=== PATIENT | male | born 1950 | race Caucasian/White ===

== ENCOUNTER → 2019-08-09 07:56 | Outpatient (CLI) | payer MEDICARE, MEDICAID, SELFPAY ==
--- NOTE | 2019-08-09 08:04 | CT_ITS ---
PROCEDURE: CT LUNG SCREENING CLINICAL INDICATION: CURRENT TOBACCO USE Greater than 100 pack year smoking history, asymptomatic for lung cancer COMPARISON: No exams were available for comparison TECHNIQUE: The exam was performed on a GE Light Speed [address] scanner using 2.90 mGy CTDI. A low dose helical CT CHEST was performed on a multi-detector scanner. All CT scans at the facility use one or more dose reduction, viz: automated exposure control, ma/kV adjustment per patient size (including targeted exams where dose is matched to indication, i.e. head), or iterative reconstruction technique. The LDCT was performed in a facility that meets the criteria for the screening program. Data regarding this exam was submitted to ACR which is an approved registry. The order for this exam indicates that it came as a result of a lung cancer screening counseling shard decision-making visit that included all the elements required of such a visit including smoking cessation. The radiologist interpreting this exam meets the [facility] criteria for the LDCT lung cancer screening program. The exam is reported using the Lung-RADS classification scale and reported to the ACR registry. NOTE: This study was performed for the specific purposes of lung cancer screening and is not an alternative to diagnostic chest CT. RADIATION DOSE: CTDI vol(CT dose Index-volume) = 2.90mG DLP (Dose Length Product) = 112.03 mGcm Lung Rads Category: Centrilobular emphysema with with scattered bulla and scattered fibrotic changes. There is a 3 mm noncalcified nodule in the left upper lobe centrally image 40 series 4 There has been a prior median sternotomy with CABG. There is mild ectasias of the ascending aorta at 4 cm OTHER FINDINGS: No other pertinent findings evident. IMPRESSION: Lung rads category 2 benign. Recommend annual LDCT Severe centrilobular emphysema with scattered bulla and scattered areas of scarring Dictated by: Jonathan Laguna MD 08/23/2019 12:33 Electronically signed by Jonathan Laguna MD in [place] 08/23/2019 12:33
--- NOTE | 2019-08-09 08:04 | US_ITS ---
PROCEDURE: US AORTA CLINICAL INDICATION: CURRENT TOBACCO USE, SCREENING AAA COMPARISON: ABDPELW/O CT ABD PELVIS W/O CONTRAST from 06/19/2016 FINDINGS: There is minimal ectasia of the mid abdominal aorta at 2 cm with a mild amount of plaque. No definite aneurysm apparent. Proximal common iliacs are unremarkable. IMPRESSION: No evidence of abdominal aortic aneurysm. Dictated by: Jonathan Laguna MD 08/09/2019 15:53 Electronically signed by Jonathan Laguna MD in [place] 08/09/2019 15:53
== END ==
PROVIDERS: PCP Family Medicine; Visit Provider Family Medicine
DX: Z87.891 Personal history of nicotine dependence (principal); Z12.2 Encounter for screening for malignant neoplasm of respiratory organs; Z13.6 Encounter for screening for cardiovascular disorders
CPT/HCPCS: 76770

== ENCOUNTER 2020-05-21 02:28 | Inpatient (IN) | payer MEDICARE, MEDICAID, SELFPAY ==
[2020-05-21] VITALS (31 sets, daily range): BP systolic 108–157; BP diastolic 71–101; PULSE 59–80; RESP 15–18; TEMP 36.6–37.4; O2SAT 20–99; BMI 18.0; BMI 18.1
--- NOTE | 2020-05-21 | IR_ITS ---
APPROVED REPORT Patient Location: Emergent PROCEDURES Left heart catheterization Left ventriculogram Selective coronary angiogram Left internal mammary angiography Selective engagement of the saphenous vein graft to the right coronary Selective engagement of the saphenous vein graft to the circumflex artery Drug-eluting stent deployment to the saphenous vein graft supplying the right coronary artery Right external iliac artery retrograde angiogram Bare-metal stent deployment to the right external iliac artery INDICATION Acute non-ST ovation myocardial infarction, Coronary artery disease, History of coronary bypass surgery, Right external iliac artery atherosclerotic plaque with stenosis, Informed consent was obtained prior to the procedure. COMPLICATIONS none Estimated Blood Loss: less than 10 mls TECHNIQUE One percent lidocaine used to anesthetize the right groin. The right femoral artery was accessed via the Seldinger technique and a 5 [place] sheath was placed in the right femoral artery. A JL 4, JR4 catheter were used to perform left heart catheterization, left ventriculogram selective coronary angiography as well as selective engagement of the 2 vein grafts and the left internal mammary artery. Retrograde angiography was performed of the right external iliac artery due to difficulty traversing the wire of the iliofemoral system. Therapeutic heparin was administered and the 5 [place] sheath was exchanged for a 6 [place] sheath. A 6 [place] multipurpose catheter was placed into the saphenous vein graft to the right coronary artery and a BMW wire was placed distally. A 3.5 x 38 mm resolute Benjamin stent was placed in the ostial proximal segment and deployed at 18 marcus reducing the stenosis in the saphenous vein graft and trapping the thrombus. An additional hazy stenosis was identified in the mid segment between 2 stents therefore an additional 3.5 x 22 mm resolute Benjamin stent was placed in the midsegment of the saphenous vein graft and deployed at 18 marcus. No reflow occurred which resolved after 2 aliquots of 800 mcg of intrasaphenous vein graft nitroglycerin. At the end of the cardiac procedure a 9 mm x 40 mm self-expanding stent was placed in the right external iliac artery followed by an additional 9 mm x 20 mm self-expanding EV 3 stent deployed distal to the first stent yet still overlapping it. An 8 mm x 40 mm balloon was used to post dilate the stenosis followed by a 9 mm x 20 mm balloon used to further post dilate. After achieving excellent angiographic results the apparatus was removed the groin was reprepped gloves were changed sheath was removed good hemostasis was achieved using Perclose device patient was transferred to the postop holding in stable condition. ANGIOGRAPHIC RESULTS The left main artery Has an ostial 30 to 40% stenosis The left anterior descending artery Has proximal 80% stenosis and then occluded at mid vessel The circumflex artery Is nondominant and gives rise to a solitary small distal obtuse marginal artery. There is a stent in the mid segment which is widely patent. Distal to the stent the stent is larger than the [place] terminal obtuse marginal artery and steps down about 40% into the 1.5 mm terminal obtuse marginal artery. The right coronary artery Is a dominant vessel and proximally occluded The [place] ventriculogram reveals Dilated ventricle with anterior hypokinesis and severe inferior hypokinesis. Estimated ejection fraction is 30 to 35% The left ventricular end-diastolic pressure 15 mmHg Left internal mammary artery is widely patent to the LAD The saphenous vein graft to the right coronary artery has a thrombus in the proximal segment around a 40% stenosis followed by hazy 40%
--- NOTE | 2020-05-21 02:10 | XR_ITS ---
PROCEDURE: XR CHEST 2V CLINICAL HISTORY: chest pain COMPARISON: CT CHW CT CHEST WITH CONTRAST from 07/11/2012 CR CXR CHEST(2 VIEWS-NOT PORTABLE) from 01/06/2015 CR CXR1 CHEST-PORTABLE from 02/27/2015 CR CXR1 CHEST-PORTABLE from 01/08/2017 FINDINGS: Prior CABG. Normal heart size. Coronary artery stents are present. Chronic interstitial changes with COPD. Nodular opacity is present in the left lower lobe consistent with granuloma or area of scarring. No lobar consolidation or collapse. No acute bony abnormalities. IMPRESSION: COPD. No acute finding Dictated by: Jonathan Laguna MD 05/21/2020 04:51 Jonathan Laguna MD in [place] 05/21/2020 04:51
--- NOTE | 2020-05-21 02:10 | ECG_ITS ---
APPROVED REPORT Exam: Resting ECG HR:70 bpm ECG Measurements Heart Rate 70 AXES MI 168 P 74 QRSd 88 QRS -41 QT 420 T -18 QTc 453 Conclusion Normal sinus rhythm Left axis deviation Old inferior changes Late r wave progression Abnormal ECG Electronically signed by : Olu Gonzalez, 05/21/2020 06:55:24
[2020-05-21 02:20] LABS: Basophils # 0.1 K/mm3 (0-0.2); Basophils % 0.7 % (0.1-2.0); Eosinophils % 0.4 % (0.1-12.0); Hematocrit 46.2 % (42.0-52.0); Hemoglobin 14.1 g/dL (14.1-18.0); Lymphocytes # 1.5 K/mm3 (0.7-4.5); Lymphocytes % 18.8 % (10-50); Mean Corpuscular HGB Conc 30.4 g/dL (31.8-35.4); Mean Corpuscular Hemoglobin 26.8 pg (27.0-31.2); Mean Corpuscular Volume 88.1 fl (80-94); Mean Platelet Volume 7.7 fl (7.4-10.4); Monocytes # 0.7 K/mm3 (0.1-1.0); Monocytes % 8.8 % (1.7-9.3); Neutrophils # 5.7 K/mm3 (1.8-7.8); Neutrophils % 71.4 % (37.0-80.0); Platelet Count 387 K/mm3 (142-424); Red Blood Count 5.25 M/mm3 (4.60-6.20)
[2020-05-21 02:32] LABS: Alanine Aminotransferase 42 U/L (12-78); Albumin Level 4.2 g/dl (3.5-5.0); Alkaline Phosphatase 125 U/L (38-126); Anion Gap 13.9 mEq/L (5-15); Aspartate Amino Transferase 41 U/L (17-59); Bilirubin,Direct 0.2 mg/dl (0.0-0.4); Bilirubin,Indirect 0.1 mg/dL (0.0-0.9); Bilirubin,Total 0.3 mg/dl (0.2-1.3); Bilirubin,Unconjugated 0.1 mg/dL (0.0-1.1); Blood Urea Nitrogen 13 mg/dl (9-20); Calcium 9.7 mg/dl (8.4-10.2); Carbon Dioxide 34 mmol/L (22.0-30.0); Chloride 97 mmol/L (98-107); Creatinine Clearance Estimated 48 mL/min (50-200); Estimated Glomerular Filt Rate 112 ml/min (>60); GFR (African American) 136 ML/MIN (>60); Glucose 126 mg/dl (74-100); Potassium 3.9 mmoL/L (3.5-5.1); Sodium 141 mmol/L (136-145); Total Protein,Serum 7.7 g/dl (6.3-8.2)
[2020-05-21 02:44] LABS: Troponin I 0.14 ng/ml (0.00-0.034)
--- NOTE | 2020-05-21 02:46 | HMH.EDCP ---
ED Disposition Clinical Impression: Non-STEMI (non-ST elevated myocardial infarction) Disposition: Admitted As Inpatient Condition on Discharge: Fair - Critical Care Critical Care Time: No Attestation: On , the high probability of a clinically significant, sudden or life threatening deterioration of the following system(s) required my full and direct attention, intervention and personal management. The time I documented below is in addition to time spent performing reported procedures but includes the following listed in this critical care notation. Medical Decision Making - Medical Records Medical records reviewed: Yes: I reviewed the patient's medical records. - Gustavo Inquiry Pt receiving controlled substance: No Vital Signs: 05/21/20 02:02 Temperature 98.4 F Temperature Source Oral Pulse Rate [Right Brachial] 77 Respiratory Rate 15 Blood Pressure [Right Arm] 157/101 H Blood Pressure Mean [Right Arm] 119 Blood Pressure Source [Right Arm] Automatic Cuff Blood Pressure Position [Right Arm] Sitting 02 Sat by Pulse Oximetry 98 Oxygen Delivery Method Room Air - Lab Data Lab results reviewed: Yes: I reviewed the patient's lab results. Lab Results 05/21/20 02:05: WBC 8.0, RBC 5.25, Hgb 14.1, Hct 46.2, MCV 88.1, MCH 26.8 L, MCHC 30.4 L, RDW 16.0, Plt Count 387, MPV 7.7, Neut % (Auto) 71.4, Lymph % (Auto) 18.8, [place] % (Auto) 8.8, Eos % (Auto) 0.4, Baso % (Auto) 0.7, Neut # (Auto) 5.7, Lymph # (Auto) 1.5, [place] # (Auto) 0.7, Eos # (Auto) 0.0, Baso # (Auto) 0.1 05/21/20 02:05: Sodium 141, Potassium 3.9, Chloride 97 L, Carbon Dioxide 34 H, Anion Gap 13.9, BUN 13, Creatinine 0.70, Estimated Creat Clear 48, Estimated GFR 112, Est GFR ( Amer) 136, Glucose 126 H, Calcium 9.7, Total Bilirubin 0.3, Direct Bilirubin 0.2, Conjugated Bilirubin 0.0, Indirect Bilirubin 0.1, Unconjugated Bilirubin 0.1, AST 41, ALT 42, Alkaline Phosphatase 125, Troponin I 0.14 H, Total Protein 7.7, Albumin 4.2 05/21/20 02:05: NT-Pro-B Natriuret Pep 292 H 05/21/20 02:05: SARS-CoV-2 IgG Ab (Rapid) Negative, SARS-CoV-2 IgM Ab (Rapid) Negative Result diagrams: 05/21/20 02:05 05/21/20 02:05 Orders (Tests/Meds): ED MEDICATIONS Generic Name Dose Route Start Last Admin Trade Name Freq PRN Reason Stop Dose Admin Sodium Chloride 8 ml 05/21/20 02:56 Sodium Chloride 0.9% 10ml Vial IV 06/20/20 02:55 NEEDED PRN dilute pepcid Discontinued Medications Generic Name Dose Route Start Last Admin Trade Name Freq PRN Reason Stop Dose Admin Famotidine 20 mg 05/21/20 02:56 05/21/20 02:59 Famotidine 20mg/2ml Vial IV 05/21/20 02:57 20 mg ONCE ONE Administration Metoclopramide HCl 10 mg 05/21/20 02:56 05/21/20 02:59 Metoclopramide Hcl 10mg/2ml Vial IVP 05/21/20 02:57 10 mg ONCE ONE Administration Nitroglycerin 1 gm 05/21/20 02:56 05/21/20 02:59 Nitroglycerin 1 Gm Ointment TD 05/21/20 02:57 1 gm ONCE ONE Administration ORDERS Category Date Time Status XR chest 2V Stat Exams 05/21/20 02:10 Taken Troponin I Q3H Lab 05/21/20 05:15 Ordered Troponin I Q3H Lab 05/21/20 08:15 Ordered - Radiology Data #1 Image(s): Chest Image Reviewed: Yes I reviewed the patient's radiology image Preliminary Findings: Abnormal (nonspecific) - ECG Data Tracing #1 Normal Sinus Rhythm: Yes Ischemic changes: non-specific ST-T wave changes Medical Decision Narrative: has hx of cabg in past but no recent cath with new onset of chest pain with elevated troponin - nonstemi Chest Pain HPI - General Chief Complaint: Chest Pain Stated Complaint: chest pain Time Seen by Provider: 05/21/20 02:30 Mode of Arrival: EMS Source of Information: Patient, EMS, Medical Record Limitations: No Limitations Description of Symptoms (Recalled from ER Triage Doc. by RN): pt presents after having anterior chest pain that radiates down left arm. stated it began about an hour ago and woke him up from sleep. de
[2020-05-21 03:29] LABS: Coronavirus 19 IgG Antibody Negative (Negative); Coronavirus 19 IgM Antibody Negative (Negative)
[2020-05-21 03:30] LABS: NT Pro Brain Natriuretic Pep. 292 pg/mL (0-125)
--- NOTE | 2020-05-21 04:05 | PC.NURSE ---
pt admitted vitals changed to Q4h
--- NOTE | 2020-05-21 04:15 | PC.NURSE ---
pt admitted and boarding in emergency department till bed available on med/surg. pt is alert, oriented x 4, clear speech. lungs diminished bilaterally. no cough noted. states meds helped his chest pain, and requested light off once we left the room. abd soft, nt/nd. bs + x4 quads. last bm yesterday. remains NPO. turns and repositions self independently. no acute distress. vss monitored q4h.
--- NOTE | 2020-05-21 04:34 | PC.NURSE ---
pt given zofran and morphine for continued pain and nausea.
--- NOTE | 2020-05-21 05:15 | PC.NURSE ---
pt is resting, eyes closed. vss. no acute distress.
[2020-05-21 05:58] LABS: Troponin I 0.44 ng/ml (0.00-0.034)
--- NOTE | 2020-05-21 06:15 | PC.NURSE ---
pt resting quietly, vss. no distress observed.
--- NOTE | 2020-05-21 06:47 | CA_ITS ---
APPROVED REPORT EXAM: Comprehensive 2D, Doppler, and color-flow Echocardiogram Under Water Assistant: Milagros Francois RVT Ht: 5 ft 6 in Wt: 112lbs BSA: 1.56 BP: 157/101 mmHg Indications: CP,CABG,HTN,NSTEMI,SMOKER,STENTS 2D Dimensions LVOT 1.45 cm (M/F) 1.5-2.5 M-Mode Dimensions RVDd 2.34 cm (0.9-2.6) LA Diam 4.20 cm (1.9-4.0) LVDd 5.56 cm (3.5-5.7) Ao Diam 3.50 cm (2.0-3.7) LVDs 4.09 cm (3.5-5.7) IVSd 0.37 cm (0.6-1.1) PWd 1.24 cm (0.6-1.1) EF (Teich) 51.20% FS 26.40% EDV (Teich) 151.20 mL ESV (Teich) 73.80 mL LV Diastology E Decel Time 150.00 (160-240 msec) E/A Ratio 1.1 MED E' 13.20 (< 7 cm/sec) E'/MED E' Ratio 5.00 (>14) LAT E' 12.80 (<10 cm/sec) E/LAT E' Ratio 5.16 (>14) Mitral Valve MV E Max Daniel. 66.00 (40-130 cm/s) MV A Velocity 61.00 (40-130 cm/s) E/A Ratio 1.08 MV Decel. Time 150.00 (160-240 ms) MV PHT 44.00 ms Pulmonary Valve PV Peak Velocity 52.00 (50-150 cm/s) Left Ventricle Left atrium is mildly enlarged, left ventricle is normal size, there is no concentric left ventricular hypertrophy, visually estimated ejection fraction 55% with no obvious regional wall motion abnormality, endocardial surfaces are somewhat poorly visualized. Diastolic parameters are within normal range. Right Ventricle Right atrium and right ventricle are normal size and contractility. Aortic Valve Aortic valve is minimally thickened and fibrosed, there is no aortic stenosis or aortic insufficiency. Mitral Valve Mitral valve is grossly normal, there is mild mitral regurgitation. Tricuspid Valve Tricuspid valve is grossly normal, there is mild tricuspid regurgitation, tricuspid regurgitation jet velocity is inadequate for calculation of the right ventricular systolic pressure. Pulmonic Valve Pulmonic valve is poorly visualized. Great Vessels Aortic root is normal size. Pericardium No significant pericardial effusion noted. Conclusion 1. Mildly enlarged left atrium, normal left ventricular size, visually estimated ejection fraction 55% with no regional wall motion abnormality, diastolic parameters are within normal range. 2. Thickened and calcified aortic valve without aortic stenosis or aortic insufficiency. 3. Mild mitral and tricuspid regurgitation. 4. No significant pericardial effusion noted. Electronically signed by : Juan Uribe, 05/22/2020 05:43:48
--- NOTE | 2020-05-21 06:49 | PC.NURSE ---
contacted vascular and lab for morning orders.
[2020-05-21 07:30] LABS: Magnesium 1.8 mg/dl (1.6-2.3)
--- NOTE | 2020-05-21 07:33 | PC.NURSE ---
Report from Torrie,RN pt resting no needs at this time
--- NOTE | 2020-05-21 08:10 | PC.NURSE ---
Pt sleeping, no complaints at this time
--- NOTE | 2020-05-21 09:17 | PC.NURSE ---
Wil Caceres at bedside. Comes out and advised pt is having some more pain and requests for 1 SL nitro. Pt given nitro and 180 mg of Brilinta per Wil Caceres. Advises [place] conservation laborer will be down to get patient.
--- NOTE | 2020-05-21 09:28 | ECG_ITS ---
APPROVED REPORT Exam: Resting ECG HR:63 bpm ECG Measurements Heart Rate 63 AXES NJ 208 P 76 QRSd 76 QRS -38 QT 458 T 5 QTc 468 Conclusion Normal sinus rhythm Left axis deviation Low voltage QRS Over inferior changes with poor R-wave progression, also old Abnormal ECG Electronically signed by : Olu Gonzalez, 05/23/2020 17:11:33
--- NOTE | 2020-05-21 09:34 | PC.NURSE ---
PT GOING TO OPHTHALMIC TECHNICIAN , THE FIRST NITRO PASTE WAS REMOVED PRIOR TO PUTTING THE 2ND PASTE ON
--- NOTE | 2020-05-21 09:38 | PC.NURSE ---
pt to pathology laboratory director with BETTY Graves
--- NOTE | 2020-05-21 09:38 | HMH.CNCARD ---
History of Present Illness Consult date: 05/21/20 Consult reason: chest pain Chief complaint: NSTEMI Additional Medical History:: 1. Coronary artery disease A. 6 vessel CABG with aortic valve replacement (bioprosthetic), approximately 2007 2. Tobacco use 3. Hypertension 4. Hyperlipidemia History of present illness: 69-year-old white male with history of coronary artery disease, coronary bypass grafting and aortic valve replacement presented to the emergency department for anterior chest pain radiating to the left arm that woke him from sleep. He rates it as a 10 out of 10 on pain scale that improved after nitroglycerin in the ER. Troponins drawn overnight have returned positive with peak of 0.44. EKG showed sinus rhythm with no acute ST segment changes but appears to have old anterior and inferior infarct pattern. Patient had been stable on Nitropaste overnight. Prior to my arrival he relates he began having chest pressure again rating it as an 8 out of 10. After 2 sublingual nitroglycerin symptoms were improving down to a 5 out of 10. Blood pressure was around 110-115 mm Hg systolic. Discussed patient's status with Dr. Dixon and recommend taking patient to the cardiac [facility]ola Repairer. Brilinta 180 mg was given p.o. Patient takes an aspirin daily. [facility] History Medical History: Reports:: Coronary Artery Disease, Gall Bladder Disease, Lung Disease *Have you ever received a pneumonia vaccine?: No *Have you received a flu vaccine this season?: No Other Surgeries: Yes: Appendectomy, Cholecystectomy - *Social History Smoking Status: Current every day smoker # Packs/Day (cigarettes): 3 Alcohol Intake: never *Occupational Status:: retired, disabled *Travel in the last 8 weeks: None Family Hx:: Non-contributory Meds Home Medications Medication Instructions Recorded Confirmed Type aspirin 81 mg tablet,delayed 81 mg PO DAILY 03/15/20 05/21/20 History release carvedilol 6.25 mg tablet 6.25 mg PO Q12H 03/15/20 05/21/20 History cyclobenzaprine 5 mg tablet 5 mg PO TID PRN 03/15/20 05/21/20 History gabapentin 100 mg capsule 100 mg PO TID 03/15/20 05/21/20 History lactobacillus combination no.8 3 3,000 mmu cells PO DAILY 03/15/20 05/21/20 History billion cell capsule lisinopril 20 mg tablet 20 mg PO BID 03/15/20 05/21/20 History omega-3 fatty acids 500 mg capsule 500 mg PO DAILY 03/15/20 05/21/20 History mupirocin 2 % topical ointment 1 applic TOPICAL BID #22 g 03/29/20 05/21/20 Rx Allergies Allergy/AdvReac Type Severity Reaction Status Date / Time sulfamethoxazole Allergy Unknown Verified 05/08/20 14:41 [From BACTRIM] trimethoprim [From BACTRIM] Allergy Unknown Verified 05/08/20 14:41 Penicillins Allergy Verified 05/08/20 14:41 Exam Vital signs and Labs for Last 24 Hours: Temp Pulse Resp BP Pulse Ox 98.4 F 62 18 114/75 97 05/21/20 02:02 05/21/20 09:29 05/21/20 09:29 05/21/20 09:29 05/21/20 09:29 Laboratory Results - last 24 hr 05/21/20 02:05: WBC 8.0, RBC 5.25, Hgb 14.1, Hct 46.2, MCV 88.1, MCH 26.8 L, MCHC 30.4 L, RDW 16.0, Plt Count 387, MPV 7.7, Neut % (Auto) 71.4, Lymph % (Auto) 18.8, [place] % (Auto) 8.8, Eos % (Auto) 0.4, Baso % (Auto) 0.7, Neut # (Auto) 5.7, Lymph # (Auto) 1.5, [place] # (Auto) 0.7, Eos # (Auto) 0.0, Baso # (Auto) 0.1 05/21/20 02:05: Sodium 141, Potassium 3.9, Chloride 97 L, Carbon Dioxide 34 H, Anion Gap 13.9, BUN 13, Creatinine 0.70, Estimated Creat Clear 48, Estimated GFR 112, Est GFR ( Amer) 136, Glucose 126 H, Calcium 9.7, Total Bilirubin 0.3, Direct Bilirubin 0.2, Conjugated Bilirubin 0.0, Indirect Bilirubin 0.1, Unconjugated Bilirubin 0.1, AST 41, ALT 42, Alkaline Phosphatase 125, Troponin I 0.14 H, Total Protein 7.7, Albumin 4.2 05/21/20 02:05: NT-Pro-B Natriuret Pep 292 H 05/21/20 02:05: SARS-CoV-2 IgG Ab (Rapid) Negative, SARS-CoV-2 IgM Ab (Rapid) Negative 05/21/20 05:20: Troponin I 0.44 H 05/21/20 07:02: Magnesium 1.8 I & O for Last 24 hours: Intake &
--- NOTE | 2020-05-21 13:17 | PC.NURSE ---
Patient c/o chest pain following heart cath. [facility]p for chestpain. Titrate per protocol. Patient room moved to accomodate a stepdown room.
[2020-05-21 13:26] LABS: CATHL Activated Clotting Time 379 SEC (74-125)
[2020-05-21 13:26] LABS: CATHL Activated Clotting Time 248 SEC (74-125)
--- NOTE | 2020-05-21 13:47 | HMH.PHAVTE ---
[facility] Pharmacy VTE Monitoring - Patient Demographics Admission date: 05/21/20 Report Date: 05/21/20 Time: 13:47 Allergies/Adverse Reactions: Patient Allergies sulfamethoxazole [From BACTRIM] Allergy (Unknown, Verified 05/08/20 14:41) trimethoprim [From BACTRIM] Allergy (Unknown, Verified 05/08/20 14:41) Penicillins Allergy (Verified 05/08/20 14:41) Height: 1.68 m Weight: 50.802 kg Patient Problems: Current Active Problems Non-STEMI (non-ST elevated myocardial infarction) (Acute) CAD (coronary artery disease) (Acute) History of coronary artery bypass graft x 6 (Acute) Tobacco use disorder, continuous (Acute) Hypertension (Acute) Hyperlipidemia (Acute) - VTE Risk Labs: VTE Related Lab Results Hgb 14.1 g/dL (14.1-18.0) 05/21/20 02:05 Hct 46.2 % (42.0-52.0) 05/21/20 02:05 Plt Count 387 K/mm3 (142-424) 05/21/20 02:05 BUN 13 mg/dl (9-20) 05/21/20 02:05 Creatinine 0.70 mg/dl (0.66-1.25) 05/21/20 02:05 Estimated Creat Clear 48 mL/min (50-200) 05/21/20 02:05 Was VTE Risk Assessment Performed: Yes VTE Score: 5 VTE Risk Level: Low Risk Clinical Trial Participant: No - Prophylaxis VTE Prophylaxis Ordered?: Yes Types of VTE Prophylaxis: TEDS Knee High
--- NOTE | 2020-05-21 13:50 | HMH.PHAINT ---
home medication list completed using list from clinic pharmacy
--- NOTE | 2020-05-21 17:27 | HMH.HP ---
*Admission Date: 05/21/20 *Chief complaint: Chest pain *History of present illness: HPI is taken from cardiology consult note due to patient's drowsiness status post cardiac catheterization and is as follows: 69-year-old white male with history of coronary artery disease, coronary bypass grafting and aortic valve replacement presented to the emergency department for anterior chest pain radiating to the left arm that woke him from sleep. He rates it as a 10 out of 10 on pain scale that improved after nitroglycerin in the ER. Troponins drawn overnight have returned positive with peak of 0.44. EKG showed sinus rhythm with no acute ST segment changes but appears to have old anterior and inferior infarct pattern. Patient had been stable on Nitropaste overnight. Prior to my arrival he relates he began having chest pressure again rating it as an 8 out of 10. After 2 sublingual nitroglycerin symptoms were improving down to a 5 out of 10. Blood pressure was around 110-115 mm Hg systolic. Discussed patient's status with Dr. Dixon and recommend taking patient to the cardiac [facility]ayer. In the [facility] patient had stenting of saphenous vein graft to his right coronary artery and right external iliac stenting. Postprocedure he is complained of some chest tightness which is currently rather mild but was started on a nitroglycerin drip. He reports headache and nausea [facility] History I have reviewed the patient's past medical history: Yes Medical History: Reports:: Coronary Artery Disease, Gall Bladder Disease, Lung Disease *Have you ever received a pneumonia vaccine?: Yes *Have you received a flu vaccine this season?: Yes Other Surgeries: Yes: Appendectomy, Cholecystectomy - *Social History Last grade of school completed: 9th or 10th Smoking Status: Current every day smoker Tobacco Type: cigarettes # Packs/Day (cigarettes): 1 Alcohol Intake: never *Occupational Status:: disabled Housing: house *Travel in the last 8 weeks: None Family Hx:: Non-contributory Review of Systems - Constitutional Denies anorexia, Denies body ache(s), Denies chills - *Cardiovascular Reports chest pain, Reports chest pain at rest - *Respiratory Reports shortness of breath, Denies change in phlegm color, Denies chest congestion, Denies cough - *Gastrointestinal Denies abdominal pain, Denies belching - *Genitourinary Denies painful urination, Denies side pain - *Musculoskeletal Denies abnormal walking, Denies joint pain, Denies decreased muscle mass - *Neurologic Denies localized weakness, Denies tingling/numbness/burning sensations Meds Home Medications Medication Instructions Recorded Confirmed Type aspirin 81 mg tablet,delayed 81 mg PO DAILY 03/15/20 05/21/20 History release carvedilol 6.25 mg tablet 6.25 mg PO BID 03/15/20 05/21/20 History cyclobenzaprine 5 mg tablet 5 mg PO TID PRN 03/15/20 05/21/20 History gabapentin 100 mg capsule 100 mg PO TID 03/15/20 05/21/20 History lactobacillus combination no.8 3 1 cap PO DAILY 03/15/20 05/21/20 History billion cell capsule lisinopril 20 mg tablet 20 mg PO DAILY 03/15/20 05/21/20 History omega-3 fatty acids 500 mg capsule 500 mg PO DAILY 03/15/20 05/21/20 History mupirocin 2 % topical ointment 1 applic TOPICAL BID #22 g 03/29/20 05/21/20 Rx Allergies Allergy/AdvReac Type Severity Reaction Status Date / Time sulfamethoxazole Allergy Unknown Verified 05/08/20 14:41 [From BACTRIM] trimethoprim [From BACTRIM] Allergy Unknown Verified 05/08/20 14:41 Penicillins Allergy Verified 05/08/20 14:41 Exam Vital signs and Labs for Last 24 Hours: Temp Pulse Resp BP Pulse Ox 98 F 70 16 110/74 94 L 05/21/20 09:41 05/21/20 16:00 05/21/20 11:30 05/21/20 11:30 05/21/20 11:30 Laboratory Results - last 24 hr 05/21/20 02:05: WBC 8.0, RBC 5.25, Hgb 14.1, Hct 46.2, MCV 88.1, MCH 26.8 L, MCHC 30.4 L, RDW 16.0, Plt Count 387, MPV 7.7, Neut % (Auto) 71.4, Lymph % (Auto) 18.8, [place] % (A
[2020-05-22] VITALS (9 sets, daily range): BP systolic 96–122; BP diastolic 62–72; PULSE 60–87; RESP 16–18; TEMP 36.6–36.9; O2SAT 92–98; BMI 18.6
--- NOTE | 2020-05-22 03:55 | PC.NURSE ---
2330 pt reassessed rated pain as a 1 on a scale of 1-10, nitro drip d/c at this time. rt femoral cath site soft to touch zero bleeding or hematoma noted.
--- NOTE | 2020-05-22 03:57 | PC.NURSE ---
2000rt femoral cath site assessed soft to touch, no bleeding or hematoma noted.
[2020-05-22 06:21] LABS: Basophils % 0.2 % (0.1-2.0); Eosinophils % 0.2 % (0.1-12.0); Hemoglobin 12.3 g/dL (14.1-18.0); Lymphocytes # 1.4 K/mm3 (0.7-4.5); Lymphocytes % 16.3 % (10-50); Mean Corpuscular HGB Conc 32.4 g/dL (31.8-35.4); Mean Corpuscular Hemoglobin 27.7 pg (27.0-31.2); Mean Corpuscular Volume 85.6 fl (80-94); Mean Platelet Volume 7.6 fl (7.4-10.4); Monocytes % 11.1 % (1.7-9.3); Neutrophils # 6.2 K/mm3 (1.8-7.8); Neutrophils % 72.2 % (37.0-80.0); Platelet Count 371 K/mm3 (142-424); Red Blood Count 4.44 M/mm3 (4.60-6.20); Red Cell Distribution Width 16.2 % (11.5-17.5); White Blood Count 8.6 K/mm3 (4.8-10.8)
--- NOTE | 2020-05-22 06:23 | PC.NURSE ---
shift summary pt reported chest pain had reduced to 1 on a scale of 1-10, nitro dripped was dc. pt on residential monitor remained in sr. breath sounds where clear and equal bilaterally sats remained 95% or above. pt is a/o X4, pt voiding with bedside urinal.
[2020-05-22 06:27] LABS: Anion Gap 9.9 mEq/L (5-15); Blood Urea Nitrogen 9 mg/dl (9-20); Carbon Dioxide 27 mmol/L (22.0-30.0); Chloride 102 mmol/L (98-107); Chol/HDL Ratio 6.3 (1-3.5); Cholesterol 113 mg/dl (140-200); Creatinine Clearance Estimated 53 mL/min (50-200); Estimated Glomerular Filt Rate 134 ml/min (>60); GFR (African American) 163 ML/MIN (>60); Glucose 125 mg/dl (74-100); HDL Cholesterol 18 mg/dl (40-60); Magnesium 1.9 mg/dl (1.6-2.3); Potassium 3.9 mmoL/L (3.5-5.1); Sodium 135 mmol/L (136-145); Triglycerides 86 mg/dl (30-150); VLDL Cholesterol 17 mg/dL (0-40)
[2020-05-22 06:30] LABS: Calcium 8.7 mg/dl (8.4-10.2)
[2020-05-22 06:38] LABS: Direct LDL Cholesterol 75.15 mg/dL (100-129)
--- NOTE | 2020-05-22 06:55 | HMH.DCSUM ---
General - General Admission date:: 05/21/20 Discharge date: 05/22/20 HPI HPI: HPI is taken from cardiology consult note due to patient's drowsiness status post cardiac catheterization and is as follows: 69-year-old white male with history of coronary artery disease, coronary bypass grafting and aortic valve replacement presented to the emergency department for anterior chest pain radiating to the left arm that woke him from sleep. He rates it as a 10 out of 10 on pain scale that improved after nitroglycerin in the ER. Troponins drawn overnight have returned positive with peak of 0.44. EKG showed sinus rhythm with no acute ST segment changes but appears to have old anterior and inferior infarct pattern. Patient had been stable on Nitropaste overnight. Prior to my arrival he relates he began having chest pressure again rating it as an 8 out of 10. After 2 sublingual nitroglycerin symptoms were improving down to a 5 out of 10. Blood pressure was around 110-115 mm Hg systolic. Discussed patient's status with Dr. Dixon and recommend taking patient to the cardiac Tool Planner. In the Tool Planner patient had stenting of saphenous vein graft to his right coronary artery and right external iliac stenting. Postprocedure he is complained of some chest tightness which is currently rather mild but was started on a nitroglycerin drip. He reports headache and nausea Hospital Course Hospital Course: Patient was taken to the Tool Planner from the emergency department for non-STEMI. Findings were as follows: ANGIOGRAPHIC RESULTS The left main artery Has an ostial 30 to 40% stenosis The left anterior descending artery Has proximal 80% stenosis and then occluded at mid vessel The circumflex artery Is nondominant and gives rise to a solitary small distal obtuse marginal artery. There is a stent in the mid segment which is widely patent. Distal to the stent the stent is larger than the [place] terminal obtuse marginal artery and steps down about 40% into the 1.5 mm terminal obtuse marginal artery. The right coronary artery Is a dominant vessel and proximally occluded The [place] ventriculogram reveals Dilated ventricle with anterior hypokinesis and severe inferior hypokinesis. Estimated ejection fraction is 30 to 35% The left ventricular end-diastolic pressure 15 mmHg Left internal mammary artery is widely patent to the LAD The saphenous vein graft to the right coronary artery has a thrombus in the proximal segment around a 40% stenosis followed by hazy 40% stenoses in the mid segment in between 2 stents. Saphenous vein graft to the circumflex artery is ostially occluded The right external iliac artery has an eccentric 70 to 80% stenosis IMPRESSION Acute partial thrombosis of the saphenous vein graft supplying the dominant right coronary artery Successful stenting of the ostial proximal and mid saphenous vein graft supplying the dominant right coronary in a noncontiguous manner Patent ROSSI to the LAD Occluded saphenous vein graft to circumflex artery Regional wall motion abnormality with reduced ejection fraction Severe right external iliac artery stenosis Successful stenting the right external iliac artery severe disease reduced to 10% with 2 self-expanding bare-metal stents PLAN 1. Brilinta and aspirin 2. Echocardiogram 3. LILIYA inhibitors plus beta-blockers once hemodynamically stable 4. LDL less than 55 5. Patient should be evaluated for LifeVest prior to discharge home if the ejection fraction is 35% or less 6. Avoidance of tobacco products 7. Risk factor modification 8. Cardiac rehabilitation Electronically signed by : Petey Dixon, 05/21/2020 10:53:42 After patient's heart catheterization he did continue to complain of some mild chest pain and was placed on a nitroglycerin drip which stayed on until approximately 11 PM on the evening of May 21. At that point patient's pain had significantly reduced and was rated as a 1 o
--- NOTE | 2020-05-22 06:56 | PC.NURSE ---
dr. pantoja at bedside, chart reviewed patient assessed. new order received to discontinue ivf.
--- NOTE | 2020-05-22 07:14 | PC.NURSE ---
Propofol decreased to 2mcg at this time
--- NOTE | 2020-05-22 07:37 | P.PN_ITS ---
Subjective Date: 05/22/20 Time: 07:37 Principal diagnosis: Non-ST elevation FL Interval history: 69-year-old white male in bed in no acute distress. Patient was admitted yesterday for non-ST elevation FL with subsequent stenting of his saphenous vein graft to his right coronary artery. He did have some recurrent chest pain last evening felt secondary to vasospasm which resolved after transient IV nitroglycerin use. Patient is symptom free this morning and wants to go home. Concern for severe cardiomyopathy at the time of the cardiac cath was noted with echocardiogram yesterday showing ejection fraction of 50%. Patient was also noted to have severe right external iliac artery stenosis that was treated subsequently with 2 bare-metal stents. Exam Vital signs and Labs for Last 24 Hours: Temp Pulse Resp BP Pulse Ox 98.4 F 61 16 106/67 L 95 05/22/20 04:24 05/22/20 06:00 05/22/20 06:00 05/22/20 06:00 05/22/20 06:00 Laboratory Results - last 24 hr 05/21/20 11:29: Activated Clotting Time 248 H* 05/21/20 11:38: Activated Clotting Time 379 H* D 05/22/20 05:25: WBC 8.6, RBC 4.44 L, Hgb 12.3 L, Hct 38.0 L, MCV 85.6, MCH 27.7, MCHC 32.4, RDW 16.2, Plt Count 371, MPV 7.6, Neut % (Auto) 72.2, Lymph % (Auto) 16.3, [place] % (Auto) 11.1 H, Eos % (Auto) 0.2, Baso % (Auto) 0.2, Neut # (Auto) 6.2, Lymph # (Auto) 1.4, [place] # (Auto) 1.0, Eos # (Auto) 0.0, Baso # (Auto) 0.0 05/22/20 05:25: Sodium 135 L, Potassium 3.9, Chloride 102, Carbon Dioxide 27 D, Anion Gap 9.9, BUN 9 D, Creatinine 0.60 L, Estimated Creat Clear 53, Estimated GFR 134, Est GFR ( Amer) 163, Glucose 125 H, Calcium 8.7 D, Magnesium 1.9, Triglycerides 86, Cholesterol 113 L, LDL Cholesterol Direct 75.15 L, VLDL Cholesterol 17, HDL Cholesterol 18 L, Cholesterol/HDL Ratio 6.3 H I & O for Last 24 hours: Intake & Output 05/19/20 05/20/20 05/21/20 05/22/20 11:59 11:59 11:59 11:59 Intake Total 963 / 963 Output Total 2150 / 2150 Balance -1187 / -1187 Weight 112 lb 115 lb 9 oz - Constitutional no acute distress - *Routine HEENT Exam Head: Present: normocephalic Eye: Present: EOMI, PERRL ENT: Present: mucous membranes moist - *Routine Neck Exam Present: supple. Absent: lymphadenopathy - *Routine Respiratory Exam Present: CTA bilaterally - *Routine Cardiovascular Exam Present: RRR - *Routine Abdominal Exam Present: soft, normoactive bowel sounds. Absent: tenderness - *Routine Extremities Exam Absent: cyanosis, clubbing, edema - *Routine Skin Exam Present: warm. Absent: rash - *Routine Neurological Exam Present: alert, oriented X3 Progress Note: A&P (1) Non-STEMI (non-ST elevated myocardial infarction) Status: Acute (2) CAD (coronary artery disease) Status: Acute (3) History of coronary artery bypass graft x 6 Status: Acute (4) Tobacco use disorder, continuous Status: Acute (5) Hypertension Status: Acute (6) Hyperlipidemia Status: Acute (7) PAD (peripheral artery disease) Status: Acute Assessment and Plan for All Diagnoses:: Okay for discharge from cardiology standpoint Home medication recommendations include aspirin 81 mg daily, Brilinta 90 mg twice daily, atorvastatin 40 mg daily, carvedilol 6.25 mg twice daily and lisinopril 20 mg daily. Follow-up in our office in 1 week or sooner if needed
--- NOTE | 2020-05-22 09:45 | HMH.PHACLD ---
Zac Cunningham has received discharge medication counseling on the following medications: PATIENT IS CURRENTLY TAKING ASPIRIN DR 81 MG DAILY, CARVEDILOL 6.25 MG BID, AND LISINOPRIL 20 MG DAILY. MD ADDING BRILINTA 90 MB BID AND ATORVASTATIN 40 MG HS POST STENT.
--- NOTE | 2020-05-22 10:21 | SW/DCPLANNER ---
SET UP TRANSPORTATION FOR THIS PATIENT TO HAVE A RIDE HOME FROM THE HOSPITAL.. INFORMED NURSE THEY WILL BE CALLING WHEN SOMEONE IS IN THE AREA....
== END 2020-05-22 12:10 | disposition home or self-care (01) | DRG 247 ==
LOC: ER 04:03 → 2ND 04:07
PROVIDERS: Internal Medicine; Admitting Provider Family Medicine; Emergency Provider Emergency Medicine; PCP Family Medicine; Visit Provider Family Medicine
PROC: 027035Z Dilation of Coronary Artery, One Artery with Two Drug-eluting Intraluminal Devices, Percutaneous Approach (ICD-10-PCS; principal; 2020-05-21 14:45)
PROC: 027035Z Dilation of Coronary Artery, One Artery with Two Drug-eluting Intraluminal Devices, Percutaneous Approach (ICD-10-PCS; 2020-05-21 14:45)
DX: I21.4 Non-ST elevation (NSTEMI) myocardial infarction (principal); T82.867A Thrombosis due to cardiac prosthetic devices, implants and grafts, initial encounter; F17.210 Nicotine dependence, cigarettes, uncomplicated; I25.10 Atherosclerotic heart disease of native coronary artery without angina pectoris; I70.8 Atherosclerosis of other arteries; I10 Essential (primary) hypertension; E78.5 Hyperlipidemia, unspecified; Z79.82 Long term (current) use of aspirin; Z79.899 Other long term (current) drug therapy; Z95.1 Presence of aortocoronary bypass graft; Z82.49 Family history of ischemic heart disease and other diseases of the circulatory system; Z88.0 Allergy status to penicillin; Z88.2 Allergy status to sulfonamides; Z88.8 Allergy status to other drugs, medicaments and biological substances; Z90.49 Acquired absence of other specified parts of digestive tract; Z95.2 Presence of prosthetic heart valve
CPT/HCPCS: 36415; 37221; 71046; 80048; 80061; 80076; 83735; 83880; 84484; 85025; 85347; 86328; 92937; 93005; 93306; 93458; 96374; 96375; 99152; 99153; 99284; C1725; C1760; C1769; C1876; C1894; C9604; J1644; J2405; Q9967

== ENCOUNTER 2020-06-22 21:00 | Observation (INO) | payer MEDICARE, MEDICAID, SELFPAY ==
[2020-06-22 21:03] VITALS: BP 133/87; PULSE 71; RESP 20; TEMP 36.7; O2SAT 96; BMI 16.6
[2020-06-22 21:16] VITALS: PULSE 70
[2020-06-22 22:00] VITALS: RESP 16
[2020-06-23] VITALS: BP 98/64; PULSE 85; PULSE 90; RESP 20; TEMP 36.7; O2SAT 96
[2020-06-23 04:00] VITALS: BP 103/72; PULSE 66; PULSE 80; RESP 20; TEMP 36.9; O2SAT 99
[2020-06-23 05:00] VITALS: BMI 16.6
[2020-06-23 07:33] LABS: Chloride 108 mmol/L (98-107); Sodium 137 mmol/L (136-145)
[2020-06-23 07:34] LABS: Potassium 3.8 mmoL/L (3.5-5.1)
[2020-06-23 07:37] LABS: Anion Gap 10.8 mEq/L (5-15); Blood Urea Nitrogen 9 mg/dl (9-20); Calcium 9.1 mg/dl (8.4-10.2); Carbon Dioxide 22 mmol/L (22.0-30.0); Creatinine Clearance Estimated 48 mL/min (50-200); Estimated Glomerular Filt Rate 166 ml/min (>60); GFR (African American) 201 ML/MIN (>60); Glucose 173 mg/dl (74-100)
[2020-06-23 07:38] LABS: Hematocrit 37.3 % (42.0-52.0); Hemoglobin 11.8 g/dL (14.1-18.0); Lymphocytes # 0.7 K/mm3 (0.7-4.5); Lymphocytes % 19.8 % (10-50); Mean Corpuscular HGB Conc 31.6 g/dL (31.8-35.4); Mean Corpuscular Volume 85.5 fl (80-94); Monocytes # 0.1 K/mm3 (0.1-1.0); Monocytes % 3.4 % (1.7-9.3); Neutrophils # 2.7 K/mm3 (1.8-7.8); Neutrophils % 76.8 % (37.0-80.0); Platelet Count 399 K/mm3 (142-424); Red Blood Count 4.36 M/mm3 (4.60-6.20); Red Cell Distribution Width 17.3 % (11.5-17.5); White Blood Count 3.5 K/mm3 (4.8-10.8)
[2020-06-23 07:48] LABS: Troponin I 0.09 ng/ml (0.00-0.034)
--- NOTE | 2020-06-23 07:49 | PC.NURSE ---
no acute changes since prior assessment, pt is AxOx4, has not had any complaints of chest pain, N/V, or SOA, telemetry shows NSR, HR 66-80, systolic pressure 98-133, remains on room air
[2020-06-23 08:00] VITALS: BP 118/80; PULSE 60; PULSE 67; RESP 16; TEMP 36.9; O2SAT 95; O2SAT 99
--- NOTE | 2020-06-23 08:09 | HMH.HP ---
*Admission Date: 06/22/20 *Chief complaint: Hematemesis, melena *History of present illness: 69-year-old male with history of coronary artery disease with recent stenting May 21, 2020 presented to [facility] emergency department with complaints of 3 days of black tarry stools with onset of epigastric pain and hematemesis. Patient was undergoing evaluation at [facility]'s emergency department when a EKG showed new T wave inversions in V2 through V6 along with an elevated troponin. Dr. Dixon was contacted by the [facility] and patient was transferred to [facility]. Patient denies having chest pain. He denies neck or jaw pain. Patient does report may be some increased shortness of breath over the last 24 to 48 hours. Denies fevers, chills, cough. Regarding patient's GI symptoms he has not had any further hematemesis or passed any stools since admission. He was able to eat some crackers yesterday evening without further vomiting. Patient has been taking his aspirin and Brilinta as prescribed. Patient also takes fish oil. He reports having an ulcer 15 years ago. His last colonoscopy was in 2007 and he reports having 4 polyps removed. [facility] History I have reviewed the patient's past medical history: Yes Medical History: Reports:: Cancer, Coronary Artery Disease, Gall Bladder Disease, Hyperlipidemia, Hypertension, Lung Disease, Myocardial Infarction Denies:: Diabetes Mellitus Type 1, Diabetes Mellitus Type 2, MRSA *Have you ever received a pneumonia vaccine?: Yes *Have you received a flu vaccine this season?: Yes Other Surgeries: Yes: Appendectomy, CABG (CABG times 10/2007), Cholecystectomy, Hernia Repair, Other Valve Replacement (Bioprosthetic aortic valve 2007) Amputation: No Fractures: No - *Social History Smoking Status: Current every day smoker Tobacco Type: cigarettes # Packs/Day (cigarettes): 1 Alcohol Intake: never *Occupational Status:: retired Housing: house *Travel in the last 8 weeks: None Family Hx:: Cancer, Coronary Artery Disease, Diabetes, Hyperlipidemia, Hypertension Review of Systems - Constitutional Denies body ache(s), Denies chills, Denies lack of energy, Denies malaise - Eyes Denies change in vision - ENT Denies bleeding gums - *Cardiovascular Reports shortness of breath, Denies chest pain, Denies chest pain at rest, Denies chest pain with activity, Denies leg pain with activity, Denies excessive sweating, Denies generalized swelling, Denies irregular heart rhythm - *Respiratory Reports shortness of breath, Denies change in phlegm color, Denies chest congestion, Denies cough, Denies excessive phlegm production, Denies coughing up blood - *Gastrointestinal Reports abdominal pain, Reports change in bowel habits, Reports change in stools, Reports coffee ground vomit, Reports black, tarry stools, Denies belching, Denies bloating, Denies pain with swallowing - *Genitourinary Denies difficulty urinating, Denies difficulty with ejaculations, Denies painful urination - *Musculoskeletal Denies abnormal walking, Denies joint pain, Denies decreased muscle mass - Integumentary/Breasts Denies hair loss, Denies bleeding lesions - *Neurologic Denies abnormal walking, Denies abnormal speech Meds Home Medications Medication Instructions Recorded Confirmed Type aspirin 81 mg tablet,delayed 81 mg PO DAILY 03/15/20 07/11/20 History release carvedilol 6.25 mg tablet 6.25 mg PO BID 03/15/20 07/11/20 History gabapentin 100 mg capsule 100 mg PO TID 03/15/20 07/11/20 History Atorvastatin Calcium [Lipitor 40mg 40 mg PO HS 06/22/20 07/11/20 History Tablet*] Ticagrelor [Brilinta 90mg 90 mg PO BID 06/22/20 07/11/20 History Tablet] Pantoprazole Sodium [Protonix 40mg 40 mg PO DAILY 07/02/20 07/11/20 History tablet] losartan 50 mg tablet 50 mg PO DAILY #30 tab 07/11/20 07/11/20 Rx Allergies Allergy/AdvReac Type Severity Reaction Status Date / Time Penicill
--- NOTE | 2020-06-23 08:24 | PC.NURSE ---
Dr. Dixon and Dr. Spears notified of their consults.
--- NOTE | 2020-06-23 09:01 | HMH.GSCON ---
*Admission Date: 06/22/20 *Reason for consult:: GI blood loss *History of present illness: 69-year-old male from [place] with history of coronary artery disease with recent stenting May 21, 2020 on ASA and Brillinta presented to [facility] emergency department with complaints of 3 days of black tarry stools with onset of epigastric pain and hematemesis. Patient was undergoing evaluation at [facility]'s emergency department when a EKG showed new T wave inversions in V2 through V6 along with an elevated troponin. Dr. Dixon was contacted by the [facility] and patient was transferred to [facility]. He has not had any further hematemesis or passed any stools since admission. He reports having an ulcer 15 years ago. His last colonoscopy was in 2007 and he reports having 4 polyps removed. This was in [place]. Continues still have some epigastric pain. Review of Systems - Review of Systems Review of systems:: pertinent systems reviewed and negative unless documented below - *Neurologic Denies abnormal walking [facility] History I have reviewed the patient's past medical history: Yes Medical History: Reports:: Cancer, Coronary Artery Disease, Gall Bladder Disease, Hyperlipidemia, Hypertension, Lung Disease, Myocardial Infarction Denies:: Diabetes Mellitus Type 1, Diabetes Mellitus Type 2, MRSA *Have you ever received a pneumonia vaccine?: Yes *Have you received a flu vaccine this season?: Yes Other Surgeries: Yes: Appendectomy, CABG (CABG times 10/2007), Cholecystectomy, Hernia Repair, Other Valve Replacement (Bioprosthetic aortic valve 2007) Amputation: No Fractures: No - *Social History Smoking Status: Current every day smoker Tobacco Type: cigarettes # Packs/Day (cigarettes): 1 Alcohol Intake: never *Occupational Status:: retired Housing: house *Travel in the last 8 weeks: None Family Hx:: Cancer, Coronary Artery Disease, Diabetes, Hyperlipidemia, Hypertension Meds Home Medications Medication Instructions Recorded Confirmed Type aspirin 81 mg tablet,delayed 81 mg PO DAILY 03/15/20 06/22/20 History release carvedilol 6.25 mg tablet 6.25 mg PO BID 03/15/20 06/22/20 History cyclobenzaprine 5 mg tablet 5 mg PO TID PRN 03/15/20 06/22/20 History gabapentin 100 mg capsule 100 mg PO TID 03/15/20 06/22/20 History lactobacillus combination no.8 3 1 cap PO DAILY 03/15/20 06/22/20 History billion cell capsule lisinopril 20 mg tablet 20 mg PO DAILY 03/15/20 06/22/20 History omega-3 fatty acids 500 mg capsule 500 mg PO DAILY 03/15/20 06/22/20 History mupirocin 2 % topical ointment 1 applic TOPICAL BID #22 g 03/29/20 06/22/20 Rx Atorvastatin Calcium [Lipitor 40mg 40 mg PO HS 06/22/20 06/22/20 History Tablet*] Ticagrelor [Brilinta 90mg 90 mg PO BID 06/22/20 06/22/20 History Tablet] Allergies Allergy/AdvReac Type Severity Reaction Status Date / Time Penicillins Allergy Unknown Verified 06/22/20 21:18 sulfamethoxazole Allergy Unknown Verified 06/22/20 21:17 [From BACTRIM] trimethoprim [From BACTRIM] Allergy Unknown Verified 06/22/20 21:17 Exam Vital signs and Labs for Last 24 Hours: Temp Pulse Resp BP Pulse Ox 98.5 F 66 20 103/72 L 99 06/23/20 04:00 06/23/20 04:00 06/23/20 04:00 06/23/20 04:00 06/23/20 04:00 Laboratory Results - last 24 hr 06/23/20 03:55: Troponin I 0.10 H 06/23/20 07:04: WBC 3.5 L, RBC 4.36 L, Hgb 11.8 L, Hct 37.3 L, MCV 85.5, MCH 27.0, MCHC 31.6 L, RDW 17.3, Plt Count 399, MPV 8.0, Neut % (Auto) 76.8, Lymph % (Auto) 19.8, [place] % (Auto) 3.4, Eos % (Auto) 0.0 L, Baso % (Auto) 0.0 L, Neut # (Auto) 2.7, Lymph # (Auto) 0.7, [place] # (Auto) 0.1, Eos # (Auto) 0.0, Baso # (Auto) 0.0 06/23/20 07:04: Sodium 137, Potassium 3.8, Chloride 108 H, Carbon Dioxide 22, Anion Gap 10.8, BUN 9, Creatinine 0.50 L, Estimated Creat Clear 48, Estimated GFR 166, Est GFR ( Amer) 201, Glucose 173 H, Calcium 9.1, Troponin I 0.09 H I & O for Last 24 hours:
--- NOTE | 2020-06-23 10:27 | PC.NURSE ---
CHANGE DIET TO FULL LIQUID DIET PER DR HARVEY. ORDER PUT IN.
--- NOTE | 2020-06-23 11:16 | HMH.PHAVTE ---
[facility] Pharmacy VTE Monitoring - Patient Demographics Admission date: 06/23/20 Report Date: 06/23/20 Time: 11:16 Allergies/Adverse Reactions: Patient Allergies Penicillins Allergy (Unknown, Verified 06/22/20 21:18) sulfamethoxazole [From BACTRIM] Allergy (Unknown, Verified 06/22/20 21:17) trimethoprim [From BACTRIM] Allergy (Unknown, Verified 06/22/20 21:17) Height: 1.68 m Weight: 46.947 kg Patient Problems: Current Active Problems Non-STEMI (non-ST elevated myocardial infarction) (Acute) CAD (coronary artery disease) (Acute) History of coronary artery bypass graft x 6 (Acute) Tobacco use disorder, continuous (Acute) Hypertension (Acute) Hyperlipidemia (Acute) PAD (peripheral artery disease) (Acute) Upper GI bleed (Acute) - VTE Risk Labs: VTE Related Lab Results Hgb 11.8 g/dL (14.1-18.0) L 06/23/20 07:04 Hct 37.3 % (42.0-52.0) L 06/23/20 07:04 Plt Count 399 K/mm3 (142-424) 06/23/20 07:04 BUN 9 mg/dl (9-20) 06/23/20 07:04 Creatinine 0.50 mg/dl (0.66-1.25) L 06/23/20 07:04 Estimated Creat Clear 48 mL/min (50-200) 06/23/20 07:04 VTE Score: 7 VTE Risk Level: Moderate Risk - Prophylaxis Types of VTE Prophylaxis: TEDS Knee High Location of Applied Device: Bilateral Lower Extremeties (GENE HOSE ORDER PLACED)
[2020-06-23 12:00] VITALS: BP 120/76; PULSE 64; PULSE 70; RESP 18; TEMP 36.5; O2SAT 98
[2020-06-23 16:00] VITALS: BP 116/82; PULSE 58; PULSE 60; RESP 16; TEMP 36.8; O2SAT 96
[2020-06-23 18:13] LABS: Basophils % 0.1 % (0.1-2.0); Eosinophils % 0.1 % (0.1-12.0); Hematocrit 35.8 % (42.0-52.0); Hemoglobin 11.6 g/dL (14.1-18.0); Lymphocytes # 1.6 K/mm3 (0.7-4.5); Lymphocytes % 18.1 % (10-50); Mean Corpuscular HGB Conc 32.3 g/dL (31.8-35.4); Mean Corpuscular Hemoglobin 27.2 pg (27.0-31.2); Mean Platelet Volume 7.7 fl (7.4-10.4); Monocytes # 0.6 K/mm3 (0.1-1.0); Monocytes % 6.9 % (1.7-9.3); Neutrophils # 6.7 K/mm3 (1.8-7.8); Neutrophils % 74.8 % (37.0-80.0); Platelet Count 398 K/mm3 (142-424); Red Blood Count 4.26 M/mm3 (4.60-6.20); Red Cell Distribution Width 17.5 % (11.5-17.5)
--- NOTE | 2020-06-23 18:31 | PC.NURSE ---
A&OX4. PT HAS TOLERATED RA WELL THROUGHOUT SHIFT. RESPIRATIONS REGULAR AND UNLABORED. LUNG SOUNDS BILATERALLY CLEAR. NO COUGH NOTED. ACTIVE BOWEL SOUNDS HEARD IN ALL 4 QUADRANTS. SOFT AND TENDER ABDOMEN. NO BM REPORTED. PT VOIDS PER TOILET INDEPENDENTLY. HAND BASEBALL CLUB MANAGER EQUAL. +2 PULSES NOTED THROUGHOUT. NO EDEMA NOTED. PT HAS BEEN NSR ON TELE. NO REPORTS OF CHEST PAIN THUS FAR. PT REPORTED SOB ONCE. HE STATED HE FELT LIKE A GAS BUBBLE WAS IN HIS ABDOMEN AND HE WAS SOB FOR A FEW SECONDS. O2 WAS NOTED 97% ON RA. SINCE THEN, PT REPORTS NO OTHER EPISODES. WILL CONTINUE TO MONITOR. NS INFUSING AT 50ML/HR. PT HAS TOLERATED FULL LIQUID DIET WELL. NO REPORTS OF NAUSEA. CALL LIGHT WITHIN REACH. BED IN LOWEST POSITION. VSS.
[2020-06-23 20:00] VITALS: BP 102/52; PULSE 65; PULSE 68; RESP 17; TEMP 36.8; O2SAT 97
[2020-06-24] VITALS (7 sets, daily range): BP systolic 91–124; BP diastolic 56–69; PULSE 50–64; RESP 15–17; TEMP 36.4–36.9; O2SAT 96–97
--- NOTE | 2020-06-24 06:10 | PC.NURSE ---
PT. REPORTED EPISODES OF LOOSE STOOL. NO N/V, SOA, DIZZINESS OR PAIN REPORTED. TOLERATED FLD WELL.
[2020-06-24 07:05] LABS: Basophils % 0.3 % (0.1-2.0); Eosinophils % 0.3 % (0.1-12.0); Hematocrit 35.9 % (42.0-52.0); Hemoglobin 11.3 g/dL (14.1-18.0); Lymphocytes # 2.2 K/mm3 (0.7-4.5); Lymphocytes % 33.8 % (10-50); Mean Corpuscular HGB Conc 31.5 g/dL (31.8-35.4); Mean Corpuscular Volume 85.8 fl (80-94); Mean Platelet Volume 7.8 fl (7.4-10.4); Monocytes # 0.5 K/mm3 (0.1-1.0); Neutrophils # 3.7 K/mm3 (1.8-7.8); Neutrophils % 58.7 % (37.0-80.0); Platelet Count 397 K/mm3 (142-424); Red Blood Count 4.18 M/mm3 (4.60-6.20); Red Cell Distribution Width 17.6 % (11.5-17.5); White Blood Count 6.4 K/mm3 (4.8-10.8)
[2020-06-24 07:13] LABS: Blood Urea Nitrogen 9 mg/dl (9-20); Calcium 8.9 mg/dl (8.4-10.2); Carbon Dioxide 24 mmol/L (22.0-30.0); Chloride 110 mmol/L (98-107); Creatinine Clearance Estimated 48 mL/min (50-200); Estimated Glomerular Filt Rate 134 ml/min (>60); GFR (African American) 163 ML/MIN (>60); Glucose 103 mg/dl (74-100); Sodium 139 mmol/L (136-145)
--- NOTE | 2020-06-24 08:04 | HMH.ACPN2 ---
Internal Medicine - PN: Subj *Date: 06/24/20 *Time: 08:04 Interval history: Patient has no complaints. He reports improvement in abdominal pain after administration of Protonix. He denies chest pain or shortness of breath. He has tolerated a full liquid diet. He had one loose stool but denies any melena. Hemoglobins have remained stable Exam Vital signs and Labs for Last 24 Hours: Temp Pulse Resp BP Pulse Ox 98.4 F 54 L 16 120/58 L 96 06/24/20 04:00 06/24/20 04:00 06/24/20 04:00 06/24/20 04:00 06/24/20 04:00 Laboratory Results - last 24 hr 06/23/20 18:00: WBC 9.0 D, RBC 4.26 L, Hgb 11.6 L, Hct 35.8 L, MCV 84.0, MCH 27.2, MCHC 32.3, RDW 17.5, Plt Count 398, MPV 7.7, Neut % (Auto) 74.8, Lymph % (Auto) 18.1, [place]ner % (Auto) 6.9, Eos % (Auto) 0.1, Baso % (Auto) 0.1, Neut # (Auto) 6.7, Lymph # (Auto) 1.6, Bonner # (Auto) 0.6, Eos # (Auto) 0.0, Baso # (Auto) 0.0 06/24/20 06:40: WBC 6.4 D, RBC 4.18 L, Hgb 11.3 L, Hct 35.9 L, MCV 85.8, MCH 27.0, MCHC 31.5 L, RDW 17.6 H, Plt Count 397, MPV 7.8, Neut % (Auto) 58.7, Lymph % (Auto) 33.8, Bonner % (Auto) 7.0, Eos % (Auto) 0.3, Baso % (Auto) 0.3, Neut # (Auto) 3.7, Lymph # (Auto) 2.2, Bonner # (Auto) 0.5, Eos # (Auto) 0.0, Baso # (Auto) 0.0 06/24/20 06:40: Sodium 139, Potassium 4.0, Chloride 110 H, Carbon Dioxide 24, Anion Gap 9.0, BUN 9, Creatinine 0.60 L, Estimated Creat Clear 48, Estimated GFR 134, Est GFR ( Amer) 163, Glucose 103 H D, Calcium 8.9 I & O for Last 24 hours: Intake & Output 06/21/20 06/22/20 06/23/20 06/24/20 11:59 11:59 11:59 11:59 Intake Total 217 / 217 2403 / 2403 Output Total 300 / 300 Balance 217 / 217 2103 / 2103 Weight 103 lb 8 oz - Constitutional no acute distress - *Routine Respiratory Exam Present: CTA bilaterally - *Routine Cardiovascular Exam Present: RRR - *Routine Abdominal Exam Present: soft, normoactive bowel sounds. Absent: tenderness Assessment and Plan (1) Non-STEMI (non-ST elevated myocardial infarction) Status: Acute Category: Medical Code(s): I21.4 - Non-ST elevation (NSTEMI) myocardial infarction (2) Upper GI bleed Status: Resolved Category: Medical Code(s): K92.2 - Gastrointestinal hemorrhage, unspecified (3) CAD (coronary artery disease) Status: Acute Category: Medical Code(s): I25.10 - Atherosclerotic heart disease of [place] coronary artery without angina pectoris (4) History of coronary artery bypass graft x 6 Status: Acute Category: Surgical Code(s): Z95.1 - Presence of aortocoronary bypass graft (5) Hyperlipidemia Status: Acute Category: Medical Code(s): E78.5 - Hyperlipidemia, unspecified (6) Hypertension Status: Acute Category: Medical Code(s): I10 - Essential (primary) hypertension (7) PAD (peripheral artery disease) Status: Acute Category: Medical Code(s): I73.9 - Peripheral vascular disease, unspecified (8) Tobacco use disorder, continuous Status: Acute Category: Medical Code(s): F17.209 - Nicotine dependence, unspecified, with unspecified nicotine-induced disorders - Assessment and plan all Dx Assessment and Plan for all problems:: 1. Diet will be advanced to cardiac diet. Continue IV Protonix. The stability of his H&H is reassuring 2. In speaking with Dr. Dixon yesterday the plan will be for repeat echocardiogram in the morning due to his EKG changes seen on admission. I will repeat patient's EKG this morning
--- NOTE | 2020-06-24 08:50 | HMH.GSPN ---
Subjective Narrative: Patient feels better. No melena. Cardiology not planning any intervention. Hemoglobin stable since admission. Progress Note: A&P (1) Non-STEMI (non-ST elevated myocardial infarction) Status: Acute (2) Upper GI bleed Status: Resolved (3) CAD (coronary artery disease) Status: Acute (4) History of coronary artery bypass graft x 6 Status: Acute (5) Hyperlipidemia Status: Acute (6) Hypertension Status: Acute (7) PAD (peripheral artery disease) Status: Acute (8) Tobacco use disorder, continuous Status: Acute Assessment and Plan for All Diagnoses:: Possible EGD in the near future potentially as outpatient. Exam Vital signs and Labs for Last 24 Hours: Temp Pulse Resp BP Pulse Ox 98.4 F 54 L 16 120/58 L 96 06/24/20 04:00 06/24/20 04:00 06/24/20 04:00 06/24/20 04:00 06/24/20 04:00 Laboratory Results - last 24 hr 06/23/20 18:00: WBC 9.0 D, RBC 4.26 L, Hgb 11.6 L, Hct 35.8 L, MCV 84.0, MCH 27.2, MCHC 32.3, RDW 17.5, Plt Count 398, MPV 7.7, Neut % (Auto) 74.8, Lymph % (Auto) 18.1, [place] % (Auto) 6.9, Eos % (Auto) 0.1, Baso % (Auto) 0.1, Neut # (Auto) 6.7, Lymph # (Auto) 1.6, [place] # (Auto) 0.6, Eos # (Auto) 0.0, Baso # (Auto) 0.0 06/24/20 06:40: WBC 6.4 D, RBC 4.18 L, Hgb 11.3 L, Hct 35.9 L, MCV 85.8, MCH 27.0, MCHC 31.5 L, RDW 17.6 H, Plt Count 397, MPV 7.8, Neut % (Auto) 58.7, Lymph % (Auto) 33.8, [place] % (Auto) 7.0, Eos % (Auto) 0.3, Baso % (Auto) 0.3, Neut # (Auto) 3.7, Lymph # (Auto) 2.2, [place] # (Auto) 0.5, Eos # (Auto) 0.0, Baso # (Auto) 0.0 06/24/20 06:40: Sodium 139, Potassium 4.0, Chloride 110 H, Carbon Dioxide 24, Anion Gap 9.0, BUN 9, Creatinine 0.60 L, Estimated Creat Clear 48, Estimated GFR 134, Est GFR ( Amer) 163, Glucose 103 H D, Calcium 8.9 I & O for Last 24 hours: Intake & Output 06/21/20 06/22/20 06/23/20 06/24/20 11:59 11:59 11:59 11:59 Intake Total 217 / 217 2403 / 2403 Output Total 300 / 300 Balance 217 / 217 2103 / 2103 Weight 103 lb 8 oz - *Routine Abdominal Exam Present: soft
--- NOTE | 2020-06-24 10:22 | ECG_ITS ---
APPROVED REPORT Exam: Resting ECG HR:51 bpm ECG Measurements Heart Rate 51 AXES ME 186 P 71 QRSd 82 QRS -2 QT 518 T 130 QTc 477 Conclusion Sinus bradycardia Anterior infarct, age undetermined Marked T wave abnormality, consider lateral ischemia Abnormal ECG Electronically signed by : Olu Gonzalez, 06/25/2020 06:56:01
--- NOTE | 2020-06-24 16:15 | PC.NURSE ---
Patient is resting in chair. Neuro alert and oriented x 4. No complaints. Cardiac remains on tele, nsr. Blood pressure stable. GI: diet advanced today, no issues or concerns, no n/v/d. Patient uses urinal independently, ambulates to chair independently. No skin issues. Patient has been pleasant during shift and only concern has been advancing his diet so he can eat. Has tolerated meals. Will continue to monitor.
--- NOTE | 2020-06-24 19:05 | PC.NURSE ---
report received from [place] RN
--- NOTE | 2020-06-24 22:15 | PC.NURSE ---
pt is up ambulating in hallway without difficulty
[2020-06-25] VITALS: BP 96/61; PULSE 57; PULSE 60; RESP 16; TEMP 36.7; O2SAT 98
[2020-06-25 04:00] VITALS: BP 107/67; PULSE 55; PULSE 56; RESP 16; TEMP 36.5; O2SAT 97
--- NOTE | 2020-06-25 05:16 | PC.NURSE ---
pt has rested well throughout shift, pt is alert and orieneted and able to make needs known, no change from previous assessment, vss, no episodes of chest pain or melena this shift. no distress noted
[2020-06-25 06:00] VITALS: BMI 16.5
--- NOTE | 2020-06-25 07:20 | HMH.ACPN2 ---
Internal Medicine - PN: Subj *Date: 06/25/20 *Time: 07:20 Interval history: Patient has not had any further vomiting, hematemesis, melena. Stools have been loose but not discolored. Patient tolerated a cardiac diet yesterday. He denies chest pain. Exam Vital signs and Labs for Last 24 Hours: Temp Pulse Resp BP Pulse Ox 97.7 F 56 L 16 107/67 L 97 06/25/20 04:00 06/25/20 04:00 06/25/20 04:00 06/25/20 04:00 06/25/20 04:00 I & O for Last 24 hours: Intake & Output 06/22/20 06/23/20 06/24/20 06/25/20 11:59 11:59 11:59 11:59 Intake Total 217 / 217 2403 / 2403 1320 / 1320 Output Total 300 / 300 300 / 300 Balance 217 / 217 2103 / 2103 1020 / 1020 Weight 103 lb 8 oz 103 lb Narrative: EKG shows inverted T waves in I, aVL, V4-V6 - Constitutional no acute distress - *Routine Respiratory Exam Present: CTA bilaterally - *Routine Cardiovascular Exam Present: RRR - *Routine Abdominal Exam Present: soft, normoactive bowel sounds. Absent: tenderness Assessment and Plan (1) Non-STEMI (non-ST elevated myocardial infarction) Status: Acute Category: Medical Code(s): I21.4 - Non-ST elevation (NSTEMI) myocardial infarction (2) Upper GI bleed Status: Resolved Category: Medical Code(s): K92.2 - Gastrointestinal hemorrhage, unspecified (3) CAD (coronary artery disease) Status: Acute Category: Medical Code(s): I25.10 - Atherosclerotic heart disease of [place] coronary artery without angina pectoris (4) History of coronary artery bypass graft x 6 Status: Acute Category: Surgical Code(s): Z95.1 - Presence of aortocoronary bypass graft (5) Hyperlipidemia Status: Acute Category: Medical Code(s): E78.5 - Hyperlipidemia, unspecified (6) Hypertension Status: Acute Category: Medical Code(s): I10 - Essential (primary) hypertension (7) PAD (peripheral artery disease) Status: Acute Category: Medical Code(s): I73.9 - Peripheral vascular disease, unspecified (8) Tobacco use disorder, continuous Status: Acute Category: Medical Code(s): F17.209 - Nicotine dependence, unspecified, with unspecified nicotine-induced disorders - Assessment and plan all Dx Assessment and Plan for all problems:: Echocardiogram this morning to assess for any change in LV function. If changes present patient may possibly return to [facility]. Cardiology is consulted. If no change in patient's LV function plan will be for discharged home. Patient will then undergo outpatient EGD and colonoscopy in the future.
--- NOTE | 2020-06-25 07:24 | HMH.DCSUM ---
General - General Admission date:: 06/22/20 Discharge date: 06/25/20 HPI HPI: 69-year-old male with history of coronary artery disease with recent stenting May 21, 2020 presented to [facility] emergency department with complaints of 3 days of black tarry stools with onset of epigastric pain and hematemesis. Patient was undergoing evaluation at [facility]'s emergency department when a EKG showed new T wave inversions in V2 through V6 along with an elevated troponin. Dr. Dixon was contacted by the [facility] and patient was transferred to [facility]. Patient denies having chest pain. He denies neck or jaw pain. Patient does report may be some increased shortness of breath over the last 24 to 48 hours. Denies fevers, chills, cough. Regarding patient's GI symptoms he has not had any further hematemesis or passed any stools since admission. He was able to eat some crackers yesterday evening without further vomiting. Patient has been taking his aspirin and Brilinta as prescribed. Patient also takes fish oil. He reports having an ulcer 15 years ago. His last colonoscopy was in 2007 and he reports having 4 polyps removed. Hospital Course Hospital Course: Patient was admitted with serial H&H ordered which showed no change in patient's hemoglobin. He had no episodes of vomiting, hematemesis, melena while admitted. Patient did have some some loose stools that were not discolored. Patient was continued on his aspirin and Brilinta and IV Protonix 40 mg twice daily was ordered. Patient's diet was advanced from full liquids onto a cardiac diet which patient tolerated without incident. Due to the stability of the patient's H&H and his need for future colonoscopy patient will have an outpatient EGD and colonoscopy in the future. Patient had been transferred here due to EKG changes. Patient did not have any cardiac symptoms but EKG at an outside facility showed new T wave inversions in anterior lateral leads. Dr. Dixon had been contacted by the outside facility and patient was transferred here. Patient was placed on [facility]. Troponin was 0.1 which was similar to the outside facility. Second troponin was 0.09. Cardiology was consulted. I discussed the case with Dr. Dixon on June 19 and no plan for further interventions were made. Recommendation was made for echocardiogram which was performed on the morning of June 25 to assess for any possible change in LV function or anterior lateral hypokinesis to explain T wave inversions. Echocardiogram revealed no change in patient's EF and no LV hypokinesis. Patient was discharged home. Patient will have outpatient EGD and colonoscopy arranged. Patient will follow up with myself, Dr. Dixon and Dr. Spears within the next 2 weeks Objective Vital signs: Temp Pulse Resp BP Pulse Ox 97.7 F 56 L 16 107/67 L 97 06/25/20 04:00 06/25/20 04:00 06/25/20 04:00 06/25/20 04:00 06/25/20 04:00 DS: Diagnosis - Discharge Diagnosis (1) Non-STEMI (non-ST elevated myocardial infarction) Status: Acute (2) Upper GI bleed Status: Resolved (3) CAD (coronary artery disease) Status: Acute (4) History of coronary artery bypass graft x 6 Status: Acute (5) Hyperlipidemia Status: Acute (6) Hypertension Status: Acute (7) PAD (peripheral artery disease) Status: Acute (8) Tobacco use disorder, continuous Status: Acute Discharge Plan - Patient Discharge Instructions ACTIVITY: Continue current activity DIET: continue same diet Additional Instructions: Nursing Diagnosis: Knowledge Deficit Disease/Condition Goal(s): Education of disease process Instruction(s): Follow provider plan/instructions (See attached discharge education) Follow/up with primary care provider as instructed in discharge packet Patient Instructions: Smoking Cessation Drugs: Nicotine Replacem
[2020-06-25 08:00] VITALS: BP 107/72; PULSE 55; PULSE 60; RESP 18; TEMP 36.5; O2SAT 96
--- NOTE | 2020-06-25 08:00 | HMH.GSPN ---
Subjective Narrative: Patient is without complaints. Has had no clinical bleeding. No melena or hematemesis. Abdominal discomfort has resolved. Tolerated cardiac diet yesterday. Progress Note: A&P (1) Non-STEMI (non-ST elevated myocardial infarction) Status: Acute (2) Upper GI bleed Status: Resolved (3) CAD (coronary artery disease) Status: Acute (4) History of coronary artery bypass graft x 6 Status: Acute (5) Hyperlipidemia Status: Acute (6) Hypertension Status: Acute (7) PAD (peripheral artery disease) Status: Acute (8) Tobacco use disorder, continuous Status: Acute Assessment and Plan for All Diagnoses:: Plan is for echocardiogram to assess left ventricular function. If no change no cardiac intervention planned. Will need EGD and colonoscopy Exam Vital signs and Labs for Last 24 Hours: Temp Pulse Resp BP Pulse Ox 97.7 F 56 L 16 107/67 L 97 06/25/20 04:00 06/25/20 04:00 06/25/20 04:00 06/25/20 04:00 06/25/20 04:00 I & O for Last 24 hours: Intake & Output 06/22/20 06/23/20 06/24/20 06/25/20 11:59 11:59 11:59 11:59 Intake Total 217 / 217 2403 / 2403 1320 / 1320 Output Total 300 / 300 300 / 300 Balance 217 / 217 2103 / 2103 1020 / 1020 Weight 103 lb 8 oz 103 lb - *Routine Abdominal Exam Present: soft. Absent: tenderness
--- NOTE | 2020-06-25 08:25 | CA_ITS ---
APPROVED REPORT EXAM: Comprehensive 2D, Doppler, and color-flow Echocardiogram Set O Type Operator: Brittaney Reveles RT(R) Ht: 5 ft 6 in Wt: 100lbs BSA: 1.49 BP: 107/67 mmHg Indications: CP, smoker, HTN, hx CABG, CAD, stent 05/21/20, hx MS 2D Dimensions LVOT 2.06 cm (M/F) 1.5-2.5 LVEF (Simmons's) 57.10 % M: 52 - 72 LV Volume 83.20 mL M: 62 - 150 LV Volume Index 55.83 mL/m2 M: 34 - 74 LA Volume 39.40 mL LA Volume Index 26.44 mL/m2 (M/F) 16-34 M-Mode Dimensions RVDd 2.70 cm (0.9-2.6) LA Diam 3.77 cm (1.9-4.0) LVDd 5.47 cm (3.5-5.7) Ao Diam 3.09 cm (2.0-3.7) LVDs 3.42 cm (3.5-5.7) IVSd 0.76 cm (0.6-1.1) PWd 0.76 cm (0.6-1.1) EF (Teich) 67.00% FS 37.50% EDV (Teich) 145.60 mL ESV (Teich) 48.10 mL LV Diastology E Decel Time 237.00 (160-240 msec) E/A Ratio 0.8 MED E' 5.20 (< 7 cm/sec) E'/MED E' Ratio 12.37 (>14) LAT E' 6.00 (<10 cm/sec) E/LAT E' Ratio 10.72 (>14) Mitral Valve MV E Max Daniel. 64.00 (40-130 cm/s) MV A Velocity 76.00 (40-130 cm/s) E/A Ratio 0.85 MV Decel. Time 237.00 (160-240 ms) MV PHT 69.00 ms Tricuspid Valve TR P. Velocity 250.00 cm/s RAP Estimate 15.00 mmHg RVSP 39.90 mmHg Left Ventricle Left atrium is mildly enlarged, left ventricle is normal size, mild concentric left ventricular hypertrophy, visually estimated ejection fraction approximately 45%, there is marked hypokinesis involving the inferior wall. Diastolic parameters are inconclusive. Right Ventricle Right atrium and right ventricle mildly enlarged with normal contractility. Aortic Valve Aortic valve is minimally thickened and fibrosed, there is no aortic stenosis or aortic insufficiency. Mitral Valve Mitral valve is grossly normal, there is mild mitral regurgitation. Tricuspid Valve Tricuspid valve grossly normal, there is mild tricuspid regurgitation, calculated right ventricular systolic pressure is 40 mmHg. Pulmonic Valve Pulmonic valve is poorly visualized. Great Vessels Aortic root is normal size. Pericardium No significant pericardial effusion noted. Conclusion 1. Mild biatrial enlargement, normal left ventricular size, mild concentric left ventricular hypertrophy, visually estimated ejection fraction 45% with segmental wall motion abnormality described above, diastolic parameters are inconclusive. 2. Mildly enlarged right ventricle with normal contractility. 3. Mild mitral and tricuspid regurgitation, calculated right ventricular systolic pressure is 40 mmHg. 4. No significant pericardial effusion noted. Electronically signed by : Juan Uribe, 06/25/2020 21:39:08
[2020-06-25 09:05] LABS: Basophils % 0.5 % (0.1-2.0); Eosinophils # 0.1 K/mm3 (0.0-0.4); Eosinophils % 1.5 % (0.1-12.0); Hematocrit 37.4 % (42.0-52.0); Hemoglobin 11.3 g/dL (14.1-18.0); Lymphocytes # 1.6 K/mm3 (0.7-4.5); Lymphocytes % 27.8 % (10-50); Mean Corpuscular HGB Conc 30.2 g/dL (31.8-35.4); Mean Corpuscular Hemoglobin 25.9 pg (27.0-31.2); Mean Corpuscular Volume 85.6 fl (80-94); Mean Platelet Volume 7.2 fl (7.4-10.4); Monocytes # 0.5 K/mm3 (0.1-1.0); Monocytes % 8.9 % (1.7-9.3); Neutrophils # 3.4 K/mm3 (1.8-7.8); Neutrophils % 61.3 % (37.0-80.0); Platelet Count 403 K/mm3 (142-424); Red Blood Count 4.37 M/mm3 (4.60-6.20); White Blood Count 5.6 K/mm3 (4.8-10.8)
== END 2020-06-25 11:45 | disposition home or self-care (01) ==
PROVIDERS: Surgery; Admitting Provider Emergency Medicine; PCP Family Medicine; Visit Provider Family Medicine
DX: R07.9 Chest pain, unspecified (principal); K92.2 Gastrointestinal hemorrhage, unspecified; I25.2 Old myocardial infarction; Z72.0 Tobacco use; Z95.5 Presence of coronary angioplasty implant and graft; Z95.1 Presence of aortocoronary bypass graft; Z95.2 Presence of prosthetic heart valve; Z79.01 Long term (current) use of anticoagulants; Z79.82 Long term (current) use of aspirin; I10 Essential (primary) hypertension; Z88.0 Allergy status to penicillin; Z88.2 Allergy status to sulfonamides; Z88.8 Allergy status to other drugs, medicaments and biological substances
CPT/HCPCS: G0379; 36415; 80048; 84484; 85025; 93005; 93306; G0378; U0003

== ENCOUNTER 2020-07-02 06:14 | Observation (INO) | payer MEDICARE, MEDICAID, SELFPAY ==
[2020-07-02] VITALS (38 sets, daily range): BP systolic 101–140; BP diastolic 53–99; PULSE 55–81; RESP 15–20; TEMP 36.3–36.9; O2SAT 93–98; BMI 21.8; BMI 17.8
--- NOTE | 2020-07-02 | IR_ITS ---
APPROVED REPORT Patient Location: Outpatient Wire Tester: VEGA Edgar RT (R) PROCEDURES Left heart catheterization Left ventriculogram Selective coronary angiogram Left internal mammary angiography Selective engagement of the saphenous vein graft to the right coronary artery Selective engagement of saphenous vein graft to the circumflex artery INDICATION Acute non-ST elevation myocardial infarction, Coronary artery disease, History of coronary bypass surgery, Informed consent was obtained prior to the procedure. COMPLICATIONS none Estimated Blood Loss: less than 10 mls TECHNIQUE One percent lidocaine used to anesthetize the right groin. The right femoral artery was accessed via the Seldinger technique and a 5 Kiswahili sheath was placed in the right femoral artery. A JL 4, JR4 and multipurpose catheter were used to perform left heart catheterization, left ventriculogram selective coronary angiography as well as selective engagement of the 2 vein grafts and the left internal mammary artery. At the end of the procedure the patient was transferred to the postop holding area in stable condition for sheath removal. ANGIOGRAPHIC RESULTS The left main artery Normal The left anterior descending artery Has proximal 40 and 50% stenoses and then gives rise to a large first septal pill coater. Distal to the septal pill coater or sequential mid vessel LAD stenoses followed by a small second diagonal artery. The LAD is then occluded The circumflex artery Is nondominant has a stent in the proximal to mid segment which is widely patent. Distal to the stent there is an 80% concentric stenosis supplying a barely 2 mm obtuse marginal artery The right coronary artery Proximally occluded The VILLAFANA ventriculogram reveals Reduced at 45% with inferior apical hypokinesis The left ventricular end-diastolic pressure Less than 10 mmHg Left internal mammary artery is widely patent to the LAD. Distally is the LAD wraps the apex 90% stenosis is present in a vessel approximately 1 mm in diameter Saphenous vein graft to circumflex artery is ostially occluded Saphenous vein graft to the right coronary is widely patent with stents in the mid segment which have mild in-stent restenosis IMPRESSION Coronary disease as described above Reduced ejection fraction with regional wall motion abnormality Normal left ventricular diastolic pressure PLAN 1. Despite patient's elevated troponin and of coronary artery disease I am still most concerned about patient's profound achalasia and 30 pound weight loss in the last year. I discussed the case with both Dr. Teresa and Dr. Manzo and we all agree the patient would benefit from an EGD series today. An EGD was discussed with the patient earlier today while in the emergency department and patient was agreeable to an EGD if the cardiac catheterization did not demonstrate disease which would be quickly amenable to percutaneous intervention. 2. I recommend patient proceed with EGD today. 3. Continue medical management for coronary disease at this time Electronically signed by : Petey Dixon, 07/02/2020 12:36:55
--- NOTE | 2020-07-02 06:14 | ECG_ITS ---
APPROVED REPORT Exam: Resting ECG HR:71 bpm ECG Measurements Heart Rate 71 AXES RI 188 P 81 QRSd 92 QRS -39 QT 460 T 148 QTc 499 Conclusion Normal sinus rhythm Left axis deviation Inferior infarct, age undetermined ST & Marked T wave abnormality, consider anterolateral ischemia Abnormal ECG Electronically signed by : Olu Gonzalez, 07/02/2020 17:40:59
--- NOTE | 2020-07-02 06:15 | XR_ITS ---
PROCEDURE: XR CHEST PORTABLE CLINICAL HISTORY: CHEST PAIN Current smoker COMPARISON: CT [facility] CT CHEST WITH CONTRAST from 07/11/2012 CR CXR1 CHEST-PORTABLE from 02/27/2015 CR CXR1 CHEST-PORTABLE from 01/08/2017 CR XR CHEST 2V from 05/21/2020 FINDINGS: Patient has had prior median sternotomy and CABG procedure. There is diffuse emphysematous change in the lung meehan bilaterally. Cardiac and mediastinal silhouette is within normal limits. There is subtle density in the right lung field. This could represent overlying soft tissue, however it is more prominent than prior x-rays and if there is clinical suspicion for infiltrate, further evaluation with CT is recommended. No acute bony abnormalities. IMPRESSION: Subtle right midlung density. This could represent overlying soft tissues, however infiltrate or underlying lesion not excluded. CT of the chest is suggested. Dictated by: Margaret Johnson 07/02/2020 08:53 Margaret Johnson in OV 07/02/2020 08:53
--- NOTE | 2020-07-02 06:34 | HMH.EDCP ---
ED Disposition Clinical Impression: Unstable angina pectoris, Tobacco use disorder, continuous, Elevated troponin CAD (coronary artery disease) Qualifiers: Coronary Disease-Associated Artery/Lesion type: [place] artery [place] vs. transplanted heart: [place] heart Associated angina: with unstable angina Qualified Code(s): I25.110 - Atherosclerotic heart disease of [place] coronary artery with unstable angina pectoris Disposition: Admitted as Observation Condition on Discharge: Good Referrals: PCP,No [Non-Staff] - - Critical Care Critical Care Time: No Attestation: On , the high probability of a clinically significant, sudden or life threatening deterioration of the following system(s) required my full and direct attention, intervention and personal management. The time I documented below is in addition to time spent performing reported procedures but includes the following listed in this critical care notation. Medical Decision Making - Medical Records Medical records reviewed: Yes: I reviewed the patient's medical records. - Gustavo Inquiry Pt receiving controlled substance: No Vital Signs: 07/02/20 06:09 07/02/20 06:36 Temperature 97.8 F Temperature Source Oral Pulse Rate [Right Brachial] 75 75 Respiratory Rate 16 16 Blood Pressure [Right Arm] 129/86 117/82 Blood Pressure Mean [Right Arm] 100 93 Blood Pressure Source [Right Arm] Automatic Cuff Automatic Cuff Blood Pressure Position [Right Arm] Sitting 02 Sat by Pulse Oximetry 98 96 Oxygen Delivery Method Room Air Room Air - Lab Data Lab results reviewed: Yes: I reviewed the patient's lab results. Lab Results 07/02/20 06:30: WBC 8.0, RBC 4.49 L, Hgb 12.0 L, Hct 38.5 L, MCV 85.8, MCH 26.7 L, MCHC 31.2 L, RDW 17.1, Plt Count 399, MPV 7.4, Neut % (Auto) 69.8, Lymph % (Auto) 19.4, [place] % (Auto) 9.8 H, Eos % (Auto) 0.6, Baso % (Auto) 0.4, Neut # (Auto) 5.6, Lymph # (Auto) 1.6, [place] # (Auto) 0.8, Eos # (Auto) 0.1, Baso # (Auto) 0.0 07/02/20 06:30: Sodium 140, Potassium 3.5, Chloride 108 H, Carbon Dioxide 23, Anion Gap 12.5, BUN 12, Creatinine 0.50 L, Estimated Creat Clear 70, Estimated GFR 166, Est GFR ( Amer) 201, Glucose 124 H, Calcium 9.4, Troponin I 0.10 H 07/02/20 06:30: NT-Pro-B Natriuret Pep 1250 H Result diagrams: 07/02/20 06:30 07/02/20 06:30 Orders (Tests/Meds): ED MEDICATIONS Discontinued Medications Generic Name Dose Route Start Last Admin Trade Name Kunal PRN Reason Stop Dose Admin Sodium Chloride 1,000 mls @ 999 mls/hr 07/02/20 06:45 07/02/20 06:33 Sod Chlor 0.9% 1000ml Bag IV 07/02/20 07:45 999 mls/hr .Q1H1M EDDA Administration Nitroglycerin 1 gm 07/02/20 06:28 07/02/20 06:29 Nitroglycerin 1 Gm Ointment TD 07/02/20 06:29 1 gm ONCE ONE Administration Ondansetron HCl 4 mg 07/02/20 08:03 07/02/20 08:16 Ondansetron 4mg/2ml Vial IV 07/02/20 08:04 4 mg ONCE ONE Administration ORDERS Category Date Time Status Consult to Cardiology [CONS] Stat Cons 07/02/20 06:52 Active Chest XR -- portable [XR chest portable] Stat Exams 07/02/20 06:15 Taken Covid-19 Nasal PCR ([facility]) Routine Lab 07/02/20 06:30 Received Troponin I Q3H Lab 07/02/20 09:30 Ordered Troponin I Q3H Lab 07/02/20 12:30 Ordered - Radiology Data #1 Image(s): Chest Image Reviewed: Yes I reviewed the patient's radiology image Preliminary Findings: Abnormal (copd/changes rt lat lung ) - ECG Data Tracing #1 Normal Sinus Rhythm: Yes Ischemic changes: t wave inversions ECG compared to prior tracings: this ECG reveals significant changes - Physician Consults Physician Consulted: kit Reason -: Admission Additional Consult: bright Reason -: Pt condition Chest Pain HPI - General Chief Complaint: Chest Pain Stated Complaint: CHEST PAIN Time Seen by Provider: 07/02/20 06:20 Mode of Arrival: EMS Source of Information: Patient, EMS, Medical Record Limitations: No Limitations Description of Symptoms (Reca
[2020-07-02 06:48] LABS: Basophils % 0.4 % (0.1-2.0); Eosinophils # 0.1 K/mm3 (0.0-0.4); Eosinophils % 0.6 % (0.1-12.0); Hematocrit 38.5 % (42.0-52.0); Lymphocytes # 1.6 K/mm3 (0.7-4.5); Lymphocytes % 19.4 % (10-50); Mean Corpuscular HGB Conc 31.2 g/dL (31.8-35.4); Mean Corpuscular Hemoglobin 26.7 pg (27.0-31.2); Mean Corpuscular Volume 85.8 fl (80-94); Mean Platelet Volume 7.4 fl (7.4-10.4); Monocytes # 0.8 K/mm3 (0.1-1.0); Monocytes % 9.8 % (1.7-9.3); Neutrophils # 5.6 K/mm3 (1.8-7.8); Neutrophils % 69.8 % (37.0-80.0); Platelet Count 399 K/mm3 (142-424); Red Blood Count 4.49 M/mm3 (4.60-6.20); Red Cell Distribution Width 17.1 % (11.5-17.5)
--- NOTE | 2020-07-02 06:53 | PC.NURSE ---
spoke with dr pantoja who wishes to have cardiology consulted to see as far as how to proceed with patient.
[2020-07-02 06:54] LABS: Chloride 108 mmol/L (98-107); Sodium 140 mmol/L (136-145)
[2020-07-02 06:55] LABS: Potassium 3.5 mmoL/L (3.5-5.1)
[2020-07-02 06:57] LABS: Blood Urea Nitrogen 12 mg/dl (9-20); Creatinine Clearance Estimated 70 mL/min (50-200); Estimated Glomerular Filt Rate 166 ml/min (>60); GFR (African American) 201 ML/MIN (>60)
[2020-07-02 06:58] LABS: Anion Gap 12.5 mEq/L (5-15); Calcium 9.4 mg/dl (8.4-10.2); Carbon Dioxide 23 mmol/L (22.0-30.0); Glucose 124 mg/dl (74-100)
[2020-07-02 07:08] LABS: NT Pro Brain Natriuretic Pep. 1250 pg/mL (0-125)
--- NOTE | 2020-07-02 09:15 | HMH.CNCARD ---
History of Present Illness Consult date: 07/02/20 Consult reason: chest pain Chief complaint: chest pain, nausea Additional Medical History:: 1. Coronary artery disease A. 6 vessel CABG with aortic valve replacement (bioprosthetic), approximately 2007 B. Non-ST elevation [place], 05/21/2020, with subsequent JUAN CARLOS to SVG to RCA. C. Echocardiogram, 05/2019 And 06/2020 showing EF approximately 45% with inferior wall hypokinesis. 2. Tobacco use, since age 19. Smoked up to 3 to 4 packs a day previously but currently 1/2 pack/day. 3. Hypertension 4. Hyperlipidemia 5. Nausea, 25 pound weight loss in the last year with complaints of dysphagia and history of hiatal hernia, 06/2020 History of present illness: 69-year-old white male with history as noted above including recent non-ST elevation [place] and subsequent drug-eluting stent placement to the vein graft to the RCA had been doing well until he was awakened in the middle of the night with left-sided chest discomfort radiating down the left arm. This was associated with nausea as well as diaphoresis. Patient thought this was reflux or GERD symptoms and tried taking an antacid without relief. He did take 1 sublingual nitroglycerin in route by EMS to the ER with some improvement. He was subsequently given 2 more nitroglycerin in the ER as well as nitroglycerin paste. Patient states his symptoms have dramatically improved. EKG is sinus rhythm with marked T wave inversion in V2 through V6 which is slightly progressed compared with his EKG from earlier this month. Patient also relates a 25 pound weight loss over the last year with complaints of food getting stuck mid chest and occasionally having to vomit the food back up. Patient has related this to his family doctor and is supposed to be seeing GI as an outpatient in the near future. Troponin today is mildly elevated at 0.1 which is consistent with his prior to admission last week and last month. Discussed the case with Dr. Dixon who feels that the patient will need cardiac catheterization for further evaluation and prior to any GI evaluation. Did discuss the recommendations for cardiac catheterization prior to any GI evaluation with the patient. He is agreeable to this plan and is willing to undergo EGD after cardiac catheterization if indicated. [facility] History Medical History: Reports:: Cancer, Coronary Artery Disease, Gall Bladder Disease, Hyperlipidemia, Hypertension, Lung Disease, Myocardial Infarction Denies:: Diabetes Mellitus Type 1, Diabetes Mellitus Type 2, MRSA *Have you ever received a pneumonia vaccine?: No *Have you received a flu vaccine this season?: No Other Surgeries: Yes: Appendectomy, CABG (CABG times 10/2007), Cholecystectomy, Hernia Repair, Other Valve Replacement (Bioprosthetic aortic valve 2007) Amputation: No Fractures: No - *Social History Smoking Status: Current every day smoker Tobacco Type: cigarettes # Packs/Day (cigarettes): 1 Alcohol Intake: never *Occupational Status:: retired Housing: house *Travel in the last 8 weeks: Inside the [facility] Family Hx:: Cancer, Coronary Artery Disease, Diabetes, Hyperlipidemia, Hypertension Meds Home Medications Medication Instructions Recorded Confirmed Type aspirin 81 mg tablet,delayed 81 mg PO DAILY 03/15/20 07/02/20 History release carvedilol 6.25 mg tablet 6.25 mg PO BID 03/15/20 07/02/20 History gabapentin 100 mg capsule 100 mg PO TID 03/15/20 07/02/20 History lisinopril 20 mg tablet 20 mg PO DAILY 03/15/20 07/02/20 History Atorvastatin Calcium [Lipitor 40mg 40 mg PO HS 06/22/20 07/02/20 History Tablet*] Ticagrelor [Brilinta 90mg 90 mg PO BID 06/22/20 07/02/20 History Tablet] Pantoprazole Sodium [Protonix 40mg 40 mg PO DAILY 07/02/20 07/02/20 History tablet] Allergies Allergy/AdvReac Type Severity Reaction Status Date / Time Penicillins Allergy Unknown Verified 06/22/20 21:18 sulfamethoxazole Allergy Unknown Verified 06/22/20 21:17 [Fro
--- NOTE | 2020-07-02 09:18 | PC.NURSE ---
ILEANA CAME TO SEE PT AND WANTS HIM ADMITTED FOR POSSIBLE CATH. DR NASH AWARE AND IS CONTACTING DR HARVEY
--- NOTE | 2020-07-02 09:27 | PC.NURSE ---
CARE MANAGEMENT CALLED
--- NOTE | 2020-07-02 09:44 | HMH.PHAINT ---
MEDICATION RECONCILIATION COMPLETED ON PATIENT USING EXTERNAL FILL HISTORY FROM PHARMACY AND DISCHARGE SUMMARY FROM PREVIOUS VISIT. -BREANA NEELYD
[2020-07-02 10:54] LABS: Troponin I 0.99 ng/ml (0.00-0.034)
--- NOTE | 2020-07-02 12:17 | PC.NURSE ---
cath lab tech girls brought patient to the floor
--- NOTE | 2020-07-02 13:06 | HMH.PHAVTE ---
[facility] Pharmacy VTE Monitoring - Patient Demographics Admission date: 07/02/20 Report Date: 07/02/20 Time: 13:06 Allergies/Adverse Reactions: Patient Allergies Penicillins Allergy (Unknown, Verified 06/22/20 21:18) sulfamethoxazole [From BACTRIM] Allergy (Unknown, Verified 06/22/20 21:17) trimethoprim [From BACTRIM] Allergy (Unknown, Verified 06/22/20 21:17) Height: 1.78 m Weight: 68.946 kg Patient Problems: Current Active Problems CAD (coronary artery disease) (Acute) History of coronary artery bypass graft x 6 (Acute) Tobacco use disorder, continuous (Acute) Hypertension (Acute) Hyperlipidemia (Acute) Unstable angina pectoris (Acute) Elevated troponin (Acute) Angina pectoris (Acute) Weight loss (Acute) Nausea (Acute) Dysphagia (Acute) History of hiatal hernia (Acute) - VTE Risk Labs: VTE Related Lab Results Hgb 12.0 g/dL (14.1-18.0) L 07/02/20 06:30 Hct 38.5 % (42.0-52.0) L 07/02/20 06:30 Plt Count 399 K/mm3 (142-424) 07/02/20 06:30 BUN 12 mg/dl (9-20) 07/02/20 06:30 Creatinine 0.50 mg/dl (0.66-1.25) L 07/02/20 06:30 Estimated Creat Clear 70 mL/min (50-200) 07/02/20 06:30 - Prophylaxis VTE Prophylaxis Ordered?: Yes Types of VTE Prophylaxis: TEDS Knee High Location of Applied Device: Bilateral Lower Extremeties
--- NOTE | 2020-07-02 14:01 | HMH.PROC ---
[facility] Procedure Note Procedure Note:: Upper Endoscopy Procedure Report: Esophagogastroduodenoscopy with cold biopsies and Endo Clip placement Endoscopost: Suleman Manzo II, MD Referring Physician: Petey Dixon MD/Olu Teresa MD Date of Procedure: July 02, 2020 Equipment: Olympus GIF 180 standard upper endoscope Sedation: MAC sedation Indications: Mr. Cunningham is a 69-year-old gentleman with the acute onset of chest pain that awakened him from sleep at 4 AM this morning. This was severe and was midsternal but radiated into the left precordium and down left arm. At the time, this was associated with some bloating. The patient also reports more significant heartburn and reflux. He has had long-term GERD and takes Protonix. He even took Tums this morning which did not improve his pain. He did go to the emergency department. He did undergo cardiac catheterization that did show some small vessel coronary disease but no large vessel coronary disease. The patient has had a 30 pound weight loss in the last 6 months. He also has some solid food dysphagia. He does eat small bites of food. Additionally, he did have some mild borderline anemia (hemoglobin 12 and hematocrit 38). EGD is performed for further diagnostic evaluation. Procedure: Prior to the procedure, a history and physical exam was performed, and patient's medications and allergies were reviewed. The risks, benefits and alternatives of the sedation and procedure were discussed with the patient. All questions were answered and informed consent was obtained. The patient was brought to the procedure room. Patient identification and proposed procedure were verified by the physician and the nurse. The patient was placed in a left lateral decubitus position and the scope was passed under direct vision. Throughout the procedure, the patient's blood pressure, pulse, and oxygen saturations were monitored continuously. The upper GI endoscopy was accomplished without difficulty. The patient tolerated the procedure well. Findings: The scope was passed directly into the upper esophagus and advanced to the third portion of the duodenum. There was scalloping of the duodenal conniventes strongly suggestive of celiac disease. 2 biopsies were obtained from the duodenum (more biopsies were not obtained because of his anticoagulation post catheterization). The scope was withdrawn through a normal pylorus into the stomach. There was some linear reactive gastropathy of the antrum and body of the stomach. The remainder of the fundus of the stomach was grossly normal. Upon retroflexion there was a 2 cm small hiatal hernia. The scope was then withdrawn into the esophagus. There was a single tongue of salmon-colored mucosa that was biopsied to rule out Ness's/intestinal metaplasia (very short segment Ness's esophagus). There was a very small amount of heme identified at the biopsy site so a single Endo Clip was placed to provide full hemostasis. There were tertiary contractions and evidence of mild to moderate esophageal dysmotility. There were no other esophageal strictures or abnormalities. Impression: 1. Nonerosive GERD with mild to moderate esophageal dysmotility and small 2 cm hiatal hernia 2. Mild linear reactive gastropathy 3. Scalloping of duodenal conniventes strongly suggestive of celiac disease Plan: I will follow-up the biopsies. I will obtain celiac serologies today. I do feel that his chest pain may be secondary to esophageal dyskinesia with functional GERD. This still may have an esophageal or cardiac etiology at this point. We will discuss treatment options. I would also consider colonoscopy based upon his marked weight loss. I would also consider the possibility of some mesenteric angina and I will inquire with Dr. Dixon whether he had a chance to see any of the mesenteric vasculature (celiac artery, SMA, ALEJANDRA).
--- NOTE | 2020-07-02 14:13 | PC.NURSE ---
right joss winn CDI
[2020-07-02 14:34] LABS: Iron 22 ug/dL (49-181)
[2020-07-02 14:44] LABS: Total Iron Binding Capacity 441 ug/dL (261-462)
--- NOTE | 2020-07-02 16:27 | P.PN_ITS ---
[facility] Anesthesia Checklist - Patient Identification Patient Identification: Arm Band - Structural Data Admitted From: Inpatient Planned Operative Procedure/s: egd Consent for Planned Operative Procedure(s) Verified: Yes Verified Documents: Surgical Consent, History and Physical, Cardiac Clearance - NPO Status Verified Time NPO: 00:00 - Additional verifications Anesthesia Reactions: No - Airway Assessment C-Spine Mobility Assessed: Yes (mp2) TMJ Mobility Assessed: Yes Dentition: Dentures-good fit (taken out) - Neurological Assessment Level of Consciousness: Awake, Alert - Anesthesia Plan Anesthesia Risk discussed: Yes Anesthesia Plan: Verified ASA Class: III Anesthesia Type: MAC [facility] History I have reviewed the patient's past medical history: Yes Medical History: Reports:: Cancer, Coronary Artery Disease, Gall Bladder Disease, Hyperlipidemia, Hypertension, Lung Disease, Myocardial Infarction Denies:: Diabetes Mellitus Type 1, Diabetes Mellitus Type 2, MRSA *Have you ever received a pneumonia vaccine?: No *Have you received a flu vaccine this season?: No Anesthesia experience/problems:: nac Other Surgeries: Yes: Appendectomy, CABG (CABG times 10/2007), Cholecystectomy, Hernia Repair, Other Valve Replacement (Bioprosthetic aortic valve 2007) Amputation: No Fractures: No - *Social History Smoking Status: Current every day smoker Tobacco Type: cigarettes # Packs/Day (cigarettes): 1 Alcohol Intake: never Substance Use Type: denies use *Occupational Status:: retired Housing: house *Travel in the last 8 weeks: Inside the [facility] Family Hx:: Cancer, Coronary Artery Disease, Diabetes, Hyperlipidemia, Hypertension
--- NOTE | 2020-07-02 18:27 | PC.NURSE ---
PT IS RESTING IN BED. ALERT AND ORIENTED X4. PT HAS BEEN UP AMBULATING TO THE BATHROOM. VSS. DRESSING TO THE RT GROIN C/D/I. NO HEMATOMA NOTED. LUNG SOUNDS CLEAR. ABDOMEN SOFT/NON TENDER WITH ACTIVE BOWEL SOUNDS. EATING AND DRINKING WELL. VSS. WILL CONTINUE TO MONITOR.
[2020-07-03] VITALS: BP 106/70; PULSE 75; RESP 16; TEMP 36.9; O2SAT 95
--- NOTE | 2020-07-03 03:41 | PC.NURSE ---
Pt is A&Ox4. Rt groin cath site dressing remains CDi w/ no hematoma noted. Expiratory wheezes heard @ bilat bases per auscultation. Pt continues on RA, no cough noted. Active bowel sounds in all 4 quads, no BM noted this shift. Pt has turned self in bed and has ambulated independently w/ steady gait and balance this shift. Pt has c/o acid reflux x1 this shift and has reported favorable results w/ scheduled Protonix which was reordered and started tonight per MD Teresa. No other acute changes or complaints at this time.
[2020-07-03 04:00] VITALS: BP 93/59; PULSE 70; RESP 18; TEMP 36.7; O2SAT 96
[2020-07-03 06:10] VITALS: BMI 17.6
[2020-07-03 06:49] LABS: Basophils % 0.4 % (0.1-2.0); Eosinophils # 0.1 K/mm3 (0.0-0.4); Eosinophils % 1.1 % (0.1-12.0); Hematocrit 36.4 % (42.0-52.0); Hemoglobin 11.3 g/dL (14.1-18.0); Lymphocytes # 1.7 K/mm3 (0.7-4.5); Lymphocytes % 30.3 % (10-50); Mean Corpuscular Hemoglobin 26.5 pg (27.0-31.2); Mean Corpuscular Volume 85.3 fl (80-94); Mean Platelet Volume 7.6 fl (7.4-10.4); Monocytes # 0.4 K/mm3 (0.1-1.0); Monocytes % 7.2 % (1.7-9.3); Neutrophils # 3.5 K/mm3 (1.8-7.8); Neutrophils % 61.1 % (37.0-80.0); Platelet Count 375 K/mm3 (142-424); Red Blood Count 4.26 M/mm3 (4.60-6.20); Red Cell Distribution Width 17.2 % (11.5-17.5); White Blood Count 5.7 K/mm3 (4.8-10.8)
[2020-07-03 06:55] LABS: Chloride 107 mmol/L (98-107); Sodium 137 mmol/L (136-145)
[2020-07-03 06:56] LABS: Potassium 4.2 mmoL/L (3.5-5.1)
[2020-07-03 06:59] LABS: Anion Gap 9.2 mEq/L (5-15); Blood Urea Nitrogen 11 mg/dl (9-20); Calcium 8.7 mg/dl (8.4-10.2); Carbon Dioxide 25 mmol/L (22.0-30.0); Creatinine Clearance Estimated 51 mL/min (50-200); Estimated Glomerular Filt Rate 112 ml/min (>60); GFR (African American) 136 ML/MIN (>60); Glucose 100 mg/dl (74-100)
--- NOTE | 2020-07-03 07:04 | HMH.HP ---
*Admission Date: 07/02/20 *Chief complaint: Chest pain *History of present illness: 69-year-old male with known coronary artery disease presented the emergency department on the morning of July 02 after being awoken by chest pain. Patient had elevation in troponin to 0.1 and inverted T waves in leads V2 through V6 which had been seen on prior EKG within the last 2 weeks. Subsequent troponin had risen to 0.99. Cardiology service was contacted and patient was taken to the [facility]. Patient underwent left heart catheterization and did not require interventions for obstructive coronary disease. Concern was raised over possible GI source of chest pain. Patient was hospitalized within the last 2 weeks with claims of hematemesis and passing blood. A 48-hour observation admission revealed a stable patient with unchanged hemoglobin. On presentation to the ER his hemoglobin had risen compared to his last hospitalization. Cardiology service discussed case with gastroenterology service and patient underwent EGD yesterday with several abnormalities and concern raised over possible celiac disease due to the appearance of the duodenum. Patient informs me his brother has celiac disease. Patient was admitted for observation after his procedures. [facility] History I have reviewed the patient's past medical history: Yes Medical History: Reports:: Cancer, Coronary Artery Disease, Gall Bladder Disease, Hyperlipidemia, Hypertension, Lung Disease, Myocardial Infarction Denies:: Diabetes Mellitus Type 1, Diabetes Mellitus Type 2, MRSA *Have you ever received a pneumonia vaccine?: Yes *Have you received a flu vaccine this season?: Yes Other Medical History: Reports: Anemia Anesthesia experience/problems:: nac Other Surgeries: Yes: Appendectomy, CABG (CABG times 10/2007), Cholecystectomy, Hernia Repair, Other Valve Replacement (Bioprosthetic aortic valve 2007) Amputation: No Fractures: No - *Social History Smoking Status: Current every day smoker Tobacco Type: cigarettes # Packs/Day (cigarettes): 1 Alcohol Intake: never Substance Use Type: denies use *Occupational Status:: retired Housing: house *Travel in the last 8 weeks: None Family Hx:: Cancer, Coronary Artery Disease, Diabetes, Hyperlipidemia, Hypertension Review of Systems - Constitutional Reports weight loss, Denies body ache(s), Denies chills, Denies lack of energy, Denies malaise - ENT Denies change in voice, Denies difficulty swallowing - *Cardiovascular Reports chest pain, Reports chest pain at rest, Denies chest pain with activity - *Respiratory Denies change in phlegm color, Denies chest congestion, Denies cough - *Gastrointestinal Reports abdominal pain, Reports bloating, Reports change in stools, Denies belching, Denies feeling full early, Denies bright, red blood in stools - *Genitourinary Reports difficulty with ejaculations, Denies difficulty urinating, Denies blood in urine - *Musculoskeletal Denies joint pain - Integumentary/Breasts Denies hair loss - *Neurologic Denies headache(s), Denies seizure-like activity Meds Home Medications Medication Instructions Recorded Confirmed Type aspirin 81 mg tablet,delayed 81 mg PO DAILY 03/15/20 07/02/20 History release carvedilol 6.25 mg tablet 6.25 mg PO BID 03/15/20 07/02/20 History gabapentin 100 mg capsule 100 mg PO TID 03/15/20 07/02/20 History lisinopril 20 mg tablet 20 mg PO DAILY 03/15/20 07/02/20 History Atorvastatin Calcium [Lipitor 40mg 40 mg PO HS 06/22/20 07/02/20 History Tablet*] Ticagrelor [Brilinta 90mg 90 mg PO BID 06/22/20 07/02/20 History Tablet] Pantoprazole Sodium [Protonix 40mg 40 mg PO DAILY 07/02/20 07/02/20 History tablet] Allergies Allergy/AdvReac Type Severity Reaction Status Date / Time Penicillins Allergy Unknown Verified 06/22/20 21:18 sulfamethoxazole Allergy Unknown Verified 06/22/20 21:17 [From BACTRIM] trimethoprim [From BACTRIM] Allergy Unknown Verified
--- NOTE | 2020-07-03 07:09 | HMH.DCSUM ---
General - General Admission date:: 07/02/20 Discharge date: 07/03/20 HPI HPI: 69-year-old male with known coronary artery disease presented the emergency department on the morning of July 02 after being awoken by chest pain. Patient had elevation in troponin to 0.1 and inverted T waves in leads V2 through V6 which had been seen on prior EKG within the last 2 weeks. Subsequent troponin had risen to 0.99. Cardiology service was contacted and patient was taken to the [facility]. Patient underwent left heart catheterization and did not require interventions for obstructive coronary disease. Concern was raised over possible GI source of chest pain. Patient was hospitalized within the last 2 weeks with claims of hematemesis and passing blood. A 48-hour observation admission revealed a stable patient with unchanged hemoglobin. On presentation to the ER his hemoglobin had risen compared to his last hospitalization. Cardiology service discussed case with gastroenterology service and patient underwent EGD yesterday with several abnormalities and concern raised over possible celiac disease due to the appearance of the duodenum. Patient informs me his brother has celiac disease. Patient was admitted for observation after his procedures. Hospital Course Hospital Course: After both left heart catheterization and EGD patient was admitted for observation. He remained chest pain-free. Patient had normal vital signs on room air. He tolerated diet without dysphagia, dyspepsia, diarrhea. Patient was discharged home. Patient will need follow-up with cardiology service per their instructions. Follow-up with Dr. Manzo for test results as well as need for colonoscopy for screening purposes and weight loss. Follow-up with me in 1 week Objective Vital signs: Temp Pulse Resp BP Pulse Ox 98.0 F 70 18 93/59 L 96 07/03/20 04:00 07/03/20 04:00 07/03/20 04:00 07/03/20 04:00 07/03/20 04:00 no acute distress - *Routine Respiratory Exam Present: CTA bilaterally - *Routine Cardiovascular Exam Present: RRR - *Routine Abdominal Exam Present: soft, normoactive bowel sounds. Absent: tenderness Results Labs on day of discharge: Labs from last 24 hours 07/03/20 07/03/20 07/02/20 06:31 06:31 09:50 WBC 5.7 D RBC 4.26 L Hgb 11.3 L Hct 36.4 L MCV 85.3 MCH 26.5 L MCHC 31.0 L RDW 17.2 Plt Count 375 MPV 7.6 Neut % (Auto) 61.1 Lymph % (Auto) 30.3 [place] % (Auto) 7.2 Eos % (Auto) 1.1 Baso % (Auto) 0.4 Neut # (Auto) 3.5 Lymph # (Auto) 1.7 [place] # (Auto) 0.4 Eos # (Auto) 0.1 Baso # (Auto) 0.0 Sodium 137 Potassium 4.2 Chloride 107 Carbon Dioxide 25 Anion Gap 9.2 BUN 11 Creatinine 0.70 D Estimated Creat Clear 51 Estimated GFR 112 Est GFR ( Amer) 136 D Glucose 100 Calcium 8.7 Iron TIBC Iron Saturation Troponin I 0.99 H NT-Pro-B Natriuret Pep 07/02/20 07/02/20 07/02/20 06:30 06:30 06:30 WBC RBC Hgb Hct MCV MCH MCHC RDW Plt Count MPV Neut % (Auto) Lymph % (Auto) [place] % (Auto) Eos % (Auto) Baso % (Auto) Neut # (Auto) Lymph # (Auto) [place] # (Auto) Eos # (Auto) Baso # (Auto) Sodium Potassium Chloride Carbon Dioxide Anion Gap BUN Creatinine Estimated Creat Clear Estimated GFR Est GFR ( Amer) Glucose Calcium Iron 22 L TIBC 441 Iron Saturation 4.52018 L Troponin I 0.10 H NT-Pro-B Natriuret Pep 1250 H DS: Diagnosis - Discharge Diagnosis (1) Angina pectoris Status: Acute (2) CAD (coronary artery disease) Status: Acute (3) Elevated troponin Status: Acute (4) History of coronary artery bypass graft x 6 Status: Acute (5) Hyperlipidemia Status: Acute (6) Hypertension Status: Acute (7) Tobacco use disorder, co
[2020-07-03 07:37] VITALS: BP 122/85; PULSE 64; RESP 18; TEMP 36.8; O2SAT 95
--- NOTE | 2020-07-03 08:06 | P.PN_ITS ---
Subjective Date: 07/03/20 Time: 08:06 Principal diagnosis: Chest pain Interval history: 69-year-old white male ambulating in the room in no acute distress. Patient states he feels significantly better than on admission. He has had no further chest pain overnight. He is of trying to find a ride home. Results of his cardiac catheterization were discussed with recommendation for continuation of medical therapy. Exam Vital signs and Labs for Last 24 Hours: Temp Pulse Resp BP Pulse Ox 98.2 F 64 18 122/85 95 07/03/20 07:37 07/03/20 07:37 07/03/20 07:37 07/03/20 07:37 07/03/20 07:37 Laboratory Results - last 24 hr 07/02/20 06:30: Iron 22 L, TIBC 441, Iron Saturation 4.49877 L 07/02/20 09:50: Troponin I 0.99 H 07/03/20 06:31: WBC 5.7 D, RBC 4.26 L, Hgb 11.3 L, Hct 36.4 L, MCV 85.3, MCH 26.5 L, MCHC 31.0 L, RDW 17.2, Plt Count 375, MPV 7.6, Neut % (Auto) 61.1, Lymph % (Auto) 30.3, [place] % (Auto) 7.2, Eos % (Auto) 1.1, Baso % (Auto) 0.4, Neut # (Auto) 3.5, Lymph # (Auto) 1.7, [place] # (Auto) 0.4, Eos # (Auto) 0.1, Baso # (Auto) 0.0 07/03/20 06:31: Sodium 137, Potassium 4.2, Chloride 107, Carbon Dioxide 25, Anion Gap 9.2, BUN 11, Creatinine 0.70 D, Estimated Creat Clear 51, Estimated GFR 112, Est GFR ( Amer) 136 D, Glucose 100, Calcium 8.7 I & O for Last 24 hours: Intake & Output 06/30/20 07/01/20 07/02/20 07/03/20 11:59 11:59 11:59 11:59 Intake Total 960 / 960 Balance 960 / 960 Weight 110 lb 5 oz 110 lb 3.698 oz Microbiology Reports for the Last 24 Hours: Microbiology 07/02/20 06:30 Nasopharyngeal Coronavirus COVID-19 PCR - Final - *Routine Respiratory Exam Present: CTA bilaterally - *Routine Cardiovascular Exam Present: RRR - *Routine Neurological Exam Present: alert, oriented X3 Progress Note: A&P (1) Angina pectoris Status: Acute (2) CAD (coronary artery disease) Status: Acute (3) Elevated troponin Status: Acute (4) History of coronary artery bypass graft x 6 Status: Acute (5) Hyperlipidemia Status: Acute (6) Hypertension Status: Acute (7) Tobacco use disorder, continuous Status: Acute (8) Weight loss Status: Acute (9) Nausea Status: Acute (10) Dysphagia Status: Acute (11) History of hiatal hernia Status: Acute (12) GERD without esophagitis Status: Acute (13) Esophageal dysmotility Status: Acute (14) Celiac disease Status: Suspected Assessment and Plan for All Diagnoses:: Cardiac status stable. Agree with discharge home on home medications. Follow-up in our office in 1 week.
--- NOTE | 2020-07-03 10:14 | SW/DCPLANNER ---
PATIENT IS BEING DISCHARGED FROM THE HOSPITAL TODAY HOWEVER HE STATED HE DOES NOT HAVE A RIDE HOME... HE SAID HE HAS CALLED 4 DIFFERENT PEOPLE AND NO ONE WANTS TO COME AND GET HIM R/T [facility] [address]... WILL SPEAK WITH PATIENT TO SEE IF I CAN ASSIST HIM IN ANYWAY
--- NOTE | 2020-07-03 13:59 | PC.NURSE ---
pt has been ready for discharge this morning but due to the weather pt is having some issues with finding a ride. our airport planner is trying to find pt a ride now. dressing to the rt groin c/d/i. pt has already received discharge/medication teaching. pt has been ambulating in the [facility].
--- NOTE | 2020-07-03 14:04 | SW/DCPLANNER ---
WORKING ON TRANSPORTATION FOR THIS PATIENT TO GET HOME.. PATIENT HAS BEEN DISCHARGED BUT FAMILY CAN NOT COME AND GET HIM.. I HAVE CALLED DISPATCH TO SEE IF SOMEONE CAN TAKE HIM HOME.. WAITING ON A CALL BACK BUT THEY APPEARED HOPEFUL THEY CAN GET HIM HOME...
[2020-07-04 17:54] LABS: Deamidated Gliadin Abs, IgA 28 units (0-19); Deamidated Gliadin Abs, IgG 21 units (0-19); Endomysial IgA Antibody Positive (Negative); Tissue Transglutaminase IgA Ab 59 U/mL (0-3); Tissue Transglutaminase IgG Ab 4 U/mL (0-5)
[2020-07-05 11:28] LABS: Reticulin IgA Antibody Negative titer (Neg:<1:2.5)
== END 2020-07-03 15:16 | disposition home or self-care (01) ==
LOC: ER 09:11 → 2ND 09:41
PROVIDERS: Internal Medicine; Internal Medicine Gastroenterology; Admitting Provider Family Medicine; Emergency Provider Emergency Medicine; PCP Family Medicine; Visit Provider Family Medicine
PROC: 0DJ08ZZ Inspection of Upper Intestinal Tract, Via Natural or Artificial Opening Endoscopic (ICD-10-PCS; CPT 43235; principal; 2020-07-02 13:45)
DX: I25.118 Atherosclerotic heart disease of native coronary artery with other forms of angina pectoris (principal); I10 Essential (primary) hypertension; Z95.1 Presence of aortocoronary bypass graft; Z95.2 Presence of prosthetic heart valve; I25.2 Old myocardial infarction; Z82.49 Family history of ischemic heart disease and other diseases of the circulatory system; Z72.0 Tobacco use; K90.0 Celiac disease; Z79.01 Long term (current) use of anticoagulants; Z79.82 Long term (current) use of aspirin; Z88.0 Allergy status to penicillin; Z88.1 Allergy status to other antibiotic agents; Z88.2 Allergy status to sulfonamides; R06.9 Unspecified abnormalities of breathing
CPT/HCPCS: 43239; 36415; 71045; 80048; 83516; 83540; 83550; 83880; 84484; 85025; 86255; 86256; 88305; 93005; 93459; 96365; 96375; 99152; 99153; 99284; C1725; C1769; C1894; G0378; J1644; J2405; Q9967; U0003

== ENCOUNTER → 2020-07-19 12:54 | Outpatient (CLI) | payer MEDICARE, MEDICAID, SELFPAY ==
[2020-07-19 14:05] LABS: Anion Gap 15.3 mEq/L (5-15); Blood Urea Nitrogen 15 mg/dl (9-20); Calcium 9.6 mg/dl (8.4-10.2); Carbon Dioxide 23 mmol/L (22.0-30.0); Chloride 102 mmol/L (98-107); Estimated Glomerular Filt Rate 134 ml/min (>60); GFR (African American) 163 ML/MIN (>60); Glucose 99 mg/dl (74-100); Potassium 4.3 mmoL/L (3.5-5.1); Sodium 136 mmol/L (136-145)
== END ==
PROVIDERS: Visit Provider Physician Assistant
DX: E78.5 Hyperlipidemia, unspecified (principal); F17.209 Nicotine dependence, unspecified, with unspecified nicotine-induced disorders; I10 Essential (primary) hypertension; I21.4 Non-ST elevation (NSTEMI) myocardial infarction; I25.10 Atherosclerotic heart disease of native coronary artery without angina pectoris; I73.9 Peripheral vascular disease, unspecified; K90.0 Celiac disease; Z95.1 Presence of aortocoronary bypass graft
CPT/HCPCS: 36415; 80048

== ENCOUNTER 2020-09-28 02:33 | Observation (INO) | payer MEDICARE, MEDICAID, SELFPAY ==
[2020-09-28] VITALS (9 sets, daily range): BP systolic 117–128; BP diastolic 77–89; PULSE 58–79; RESP 15–20; TEMP 36.4–36.7; O2SAT 93–98; BMI 16.1; BMI 17.1
--- NOTE | 2020-09-28 02:21 | ECG_ITS ---
APPROVED REPORT Exam: Resting ECG HR:59 bpm ECG Measurements Heart Rate 59 AXES PA 196 P 80 QRSd 74 QRS -16 QT 478 T 268 QTc [address] & T wave abnormality, unchanged from prior tracing Prolonged QT Abnormal ECG Electronically signed by : Olu Gonzalez, 09/29/2020 11:37:36
--- NOTE | 2020-09-28 02:36 | XR_ITS ---
PROCEDURE INFORMATION: Exam: XR Chest Exam date and time: 09/28/2020 2:36 AM Age: 69 years old Clinical indication: Chest pressure; Prior surgery; Surgery date: 1-6 months; Surgery type: 2 cardiac stents put in 2 months ago. Past HX of open heart and valve replaced; Patient HX: Chest pain this am TECHNIQUE: Imaging protocol: XR of the chest. Views: 2 views. COMPARISON: CR XR CHEST PORTABLE 07/02/2020 6:33 AM FINDINGS: Lungs: Lungs are hyperexpanded, flattening of the diaphragm and increased retrosternal clear space, compatible with chronic obstructive pulmonary physiologic changes. Biapical pleuroparenchymal scarring. Pleural spaces: Unremarkable. No pleural effusion. No pneumothorax. Heart/Mediastinum: See Bones/joints finding. Bones/joints: Changes of prior sternotomy and CABG. Multilevel thoracic spine degenerative disc space narrowing and osteophyte formation. IMPRESSION: No acute cardiopulmonary abnormality.
[2020-09-28 02:47] LABS: Basophils # 0.1 K/mm3 (0-0.2); Basophils % 0.7 % (0.1-2.0); Chloride 104 mmol/L (98-107); Eosinophils # 0.1 K/mm3 (0.0-0.4); Eosinophils % 1.5 % (0.1-12.0); Hematocrit 37.1 % (42.0-52.0); Hemoglobin 11.4 g/dL (14.1-18.0); Lymphocytes # 2.2 K/mm3 (0.7-4.5); Lymphocytes % 27.9 % (10-50); Mean Corpuscular HGB Conc 30.7 g/dL (31.8-35.4); Mean Corpuscular Hemoglobin 23.9 pg (27.0-31.2); Mean Platelet Volume 7.3 fl (7.4-10.4); Monocytes # 0.6 K/mm3 (0.1-1.0); Monocytes % 7.4 % (1.7-9.3); Neutrophils # 4.9 K/mm3 (1.8-7.8); Neutrophils % 62.5 % (37.0-80.0); Platelet Count 385 K/mm3 (142-424); Red Blood Count 4.76 M/mm3 (4.60-6.20); Red Cell Distribution Width 16.8 % (11.5-17.5); White Blood Count 7.8 K/mm3 (4.8-10.8)
[2020-09-28 02:48] LABS: Potassium 4.3 mmoL/L (3.5-5.1); Sodium 138 mmol/L (136-145)
[2020-09-28 02:51] LABS: Anion Gap 12.3 mEq/L (5-15); Blood Urea Nitrogen 16 mg/dl (9-20); Calcium 9.9 mg/dl (8.4-10.2); Carbon Dioxide 26 mmol/L (22.0-30.0); Creatinine Clearance Estimated 46 mL/min (50-200); Estimated Glomerular Filt Rate 112 ml/min (>60); GFR (African American) 136 ML/MIN (>60); Glucose 118 mg/dl (74-100)
[2020-09-28 02:54] LABS: Alanine Aminotransferase 23 U/L (12-78); Albumin Level 4.3 g/dl (3.5-5.0); Alkaline Phosphatase 121 U/L (38-126); Aspartate Amino Transferase 30 U/L (17-59); Bilirubin,Direct 0.2 mg/dl (0.0-0.4); Bilirubin,Total 0.2 mg/dl (0.2-1.3); Total Protein,Serum 7.4 g/dl (6.3-8.2)
[2020-09-28 02:56] LABS: C-Reactive Protein 4.8 mg/L (0-4)
[2020-09-28 03:10] LABS: Troponin I < 0.01 ng/ml (0.00-0.034)
[2020-09-28 03:12] LABS: Adenovirus,PCR Not Detected (NotDetected); Bordetella Pertussis Not Detected (NotDetected); Chlamydophila Pneumoniae, PCR Not Detected (NotDetected); Coronavirus 19, PCR Not Detected (NotDetected); Coronavirus 229E Not Detected (NotDetected); Coronavirus NL63 Not Detected (NotDetected); Coronavirus OC43 Not Detected (NotDetected); Coronovirus HKU1,PCR Not Detected (NotDetected); Human Metapneumovirus Not Detected (NotDetected); Influenza A, PCR Not Detected (NotDetected); Influenza AH1, 2009 Not Detected (NotDetected); Influenza AH1, PCR Not Detected (NotDetected); Influenza AH3,PCR Not Detected (NotDetected); Influenza B, PCR Not Detected (NotDetected); Mycoplasma Pneumoniae, PCR Not Detected (NotDetected); Parainfluenza 1, PCR Not Detected (NotDetected); Parainfluenza 2, PCR Not Detected (NotDetected); Parainfluenza 3, PCR Not Detected (NotDetected); Parainfluenza 4, PCR Not Detected (NotDetected); Respiratory Syncytial Virus Not Detected (NotDetected); Rhinovirus/Enterovirus Not Detected (NotDetected)
[2020-09-28 03:26] LABS: Procalcitonin 0.032 ng/mL (0.0-2.0)
[2020-09-28 03:27] LABS: Erythrocyte Sedimentation Rate 24 mm/hr (0-20)
--- NOTE | 2020-09-28 03:38 | PC.NURSE ---
s/w overnight houseperson for bed assignment
--- NOTE | 2020-09-28 03:38 | HMH.EDCP ---
ED Disposition Clinical Impression: Angina at rest Disposition: Admitted as Observation Condition on Discharge: Good Referrals: Olu Teresa MD [Primary Care Provider] - - Critical Care Critical Care Time: No Attestation: On 09/28/20, the high probability of a clinically significant, sudden or life threatening deterioration of the following system(s) required my full and direct attention, intervention and personal management. The time I documented below is in addition to time spent performing reported procedures but includes the following listed in this critical care notation. Medical Decision Making - Medical Records Medical records reviewed: Yes: I reviewed the patient's medical records. - Gustavo Inquiry Pt receiving controlled substance: No Vital Signs: 09/28/20 02:31 Temperature 97.6 F Temperature Source Oral Pulse Rate [Right] 59 L Respiratory Rate 18 Blood Pressure [Right Arm] 120/86 Blood Pressure Mean [Right Arm] 97 Blood Pressure Source [Right Arm] Automatic Cuff Blood Pressure Position [Right Arm] Supine 02 Sat by Pulse Oximetry 97 Oxygen Delivery Method Room Air - Lab Data Lab results reviewed: Yes: I reviewed the patient's lab results. Lab Results 09/28/20 02:10: WBC 7.8, RBC 4.76, Hgb 11.4 L, Hct 37.1 L, MCV 78.0 L, MCH 23.9 L, MCHC 30.7 L, RDW 16.8, Plt Count 385, MPV 7.3 L, Neut % (Auto) 62.5, Lymph % (Auto) 27.9, Dick[place] % (Auto) 7.4, Eos % (Auto) 1.5, Baso % (Auto) 0.7, Neut # (Auto) 4.9, Lymph # (Auto) 2.2, Dick[place] # (Auto) 0.6, Eos # (Auto) 0.1, Baso # (Auto) 0.1, ESR 24 H 09/28/20 02:10: Sodium 138, Potassium 4.3, Chloride 104, Carbon Dioxide 26, Anion Gap 12.3, BUN 16, Creatinine 0.70, Estimated Creat Clear 46, Estimated GFR 112, Est GFR ( Amer) 136, Glucose 118 H, Calcium 9.9, Troponin I < 0.01, C-Reactive Protein 4.8 H, Procalcitonin 0.032 09/28/20 02:10: Total Bilirubin 0.2, Direct Bilirubin 0.2, Conjugated Bilirubin 0.0, Indirect Bilirubin 0.0, Unconjugated Bilirubin 0.0, AST 30, ALT 23, Alkaline Phosphatase 121, Total Protein 7.4, Albumin 4.3 Result diagrams: 09/28/20 02:10 09/28/20 02:10 Orders (Tests/Meds): ED MEDICATIONS Generic Name Dose Route Start Last Admin Trade Name Freq PRN Reason Stop Dose Admin Sodium Chloride 1,000 mls @ 999 mls/hr 09/28/20 03:00 09/28/20 02:49 Sod Chlor 0.9% 1000ml Bag IV 09/28/20 04:00 999 mls/hr .Q1H1M EDDA Administration Discontinued Medications Generic Name Dose Route Start Last Admin Trade Name Freq PRN Reason Stop Dose Admin Morphine Sulfate 4 mg 09/28/20 03:37 Morphine 4mg/Ml Syringe IV 09/28/20 03:38 ONCE ONE Nitroglycerin 1 gm 09/28/20 02:47 09/28/20 02:49 Nitroglycerin 1 Gm Ointment TD 09/28/20 02:48 1 gm ONCE ONE Administration Ondansetron HCl 4 mg 09/28/20 03:37 Ondansetron 4mg/2ml Vial IV 09/28/20 03:38 ONCE ONE ORDERS Category Date Time Status Full Resp Panel w/COVID ([facility]) Routine Lab 09/28/20 03:00 Received Troponin I Q3H Lab 09/28/20 05:45 Ordered Troponin I Q3H Lab 09/28/20 08:45 Ordered - Radiology Data #1 Image(s): Chest Image Reviewed: Yes I reviewed the patient's radiology image Preliminary Findings: Normal/NAD - ECG Data Tracing #1 Arrhythmias present: sinus john Ischemic changes: non-specific ST-T wave changes ECG compared to prior tracings: this ECG reveals significant changes (has t wave changes inf leads) Medical Decision Narrative: sl change on ekg and will admit as pt has known cad Chest Pain HPI - General Chief Complaint: Chest Pain Stated Complaint: Chest Pain Time Seen by Provider: 09/28/20 02:45 Mode of Arrival: EMS Source of Information: Patient, EMS, Medical Record Limitations: No Limitations Description of Symptoms (Recalled from ER Triage Doc. by RN): Pt called 911 for left chest pain radiating to left arm and SOA. Pt had 2 nitro's and 324 ASA POTATO LOADER with some relief. - History of Present Illness
--- NOTE | 2020-09-28 04:51 | PC.NURSE ---
pt arrived to the floor via wheelchair
[2020-09-28 06:32] LABS: Basophils # 0.1 K/mm3 (0-0.2); Basophils % 0.8 % (0.1-2.0); Eosinophils # 0.1 K/mm3 (0.0-0.4); Eosinophils % 1.8 % (0.1-12.0); Hematocrit 32.3 % (42.0-52.0); Lymphocytes # 2.1 K/mm3 (0.7-4.5); Lymphocytes % 33.9 % (10-50); Mean Corpuscular HGB Conc 30.2 g/dL (31.8-35.4); Mean Corpuscular Hemoglobin 23.7 pg (27.0-31.2); Mean Corpuscular Volume 78.7 fl (80-94); Monocytes # 0.5 K/mm3 (0.1-1.0); Neutrophils # 3.4 K/mm3 (1.8-7.8); Neutrophils % 55.4 % (37.0-80.0); Platelet Count 356 K/mm3 (142-424); Red Cell Distribution Width 16.8 % (11.5-17.5); White Blood Count 6.1 K/mm3 (4.8-10.8)
[2020-09-28 06:52] LABS: Anion Gap 8.7 mEq/L (5-15); Blood Urea Nitrogen 14 mg/dl (9-20); Carbon Dioxide 24 mmol/L (22.0-30.0); Chloride 109 mmol/L (98-107); Creatinine Clearance Estimated 49 mL/min (50-200); Estimated Glomerular Filt Rate 134 ml/min (>60); GFR (African American) 163 ML/MIN (>60); Glucose 99 mg/dl (74-100); Magnesium 1.9 mg/dl (1.6-2.3); Potassium 3.7 mmoL/L (3.5-5.1); Sodium 138 mmol/L (136-145)
[2020-09-28 06:53] LABS: Calcium 8.6 mg/dl (8.4-10.2)
[2020-09-28 06:56] LABS: Hemoglobin 9.7 g/dL (14.1-18.0)
[2020-09-28 07:00] LABS: Troponin I 0.02 ng/ml (0.00-0.034)
--- NOTE | 2020-09-28 07:11 | HMH.HP ---
*Admission Date: 09/28/20 *Chief complaint: Chest pain *History of present illness: 69-year-old male with coronary artery disease and celiac disease presented to the emergency department with sudden onset of chest pain that radiated back to his shoulder and then down his arm. While patient's previous admissions have involved chest pain that radiates into the left arm patient describes this as being a different pain in regards to where it started in the chest and how it radiated back into his shoulder. Nonetheless he took a nitroglycerin with some response but not complete resolution of pain at home. EMS was called and he was given a second nitroglycerin along with aspirin 324 mg and brought to the hospital. In the emergency department first troponin was negative but EKG did show some T wave inversions in the inferior lead which was new compared to his last EKG. second troponin earlier this morning is now 0.02. Patient reports resolution of chest pain at approximately 6 AM. At patient's last visit there was concern about possible GI etiology of both chest pain and concern over weight loss. Patient was diagnosed with celiac disease. He admits he does not always follow his gluten-free diet [facility] History I have reviewed the patient's past medical history: Yes Medical History: Reports:: Coronary Artery Disease, Gall Bladder Disease, Hyperlipidemia, Hypertension, Lung Disease, Myocardial Infarction, Peripheral Artery Disease Denies:: Cancer, Diabetes Mellitus Type 1, Diabetes Mellitus Type 2, MRSA *Have you ever received a pneumonia vaccine?: No *Have you received a flu vaccine this season?: No Other Medical History: Reports: Anemia Other Surgeries: Yes: Appendectomy, CABG, Cardiac Catheterization, Cholecystectomy, Coronary Stent, Hernia Repair, Other Valve Replacement Amputation: No Fractures: No - *Social History Last grade of school completed: High school graduate Smoking Status: Current every day smoker Tobacco Type: cigarettes # Packs/Day (cigarettes): 1 Alcohol Intake: never Substance Use Type: denies use *Occupational Status:: retired Housing: house Household Members: none *Travel in the last 8 weeks: None Family Hx:: Non-contributory Review of Systems - Constitutional Denies anorexia, Denies body ache(s), Denies chills - Eyes Denies blurry vision - ENT Denies difficulty swallowing - *Cardiovascular Reports chest pain - *Respiratory Denies change in phlegm color - *Gastrointestinal Denies abdominal pain, Denies belching - *Genitourinary Denies difficulty urinating - *Musculoskeletal Denies joint pain - Integumentary/Breasts Denies hair loss - *Neurologic Denies abnormal walking, Denies localized weakness - Psychiatric Reports abnormal sleep pattern - Endocrine Denies cold intolerance Meds Home Medications Medication Instructions Recorded Confirmed Type aspirin 81 mg tablet,delayed 81 mg PO DAILY 03/15/20 09/28/20 History release carvedilol 6.25 mg tablet 6.25 mg PO BID 03/15/20 09/28/20 History gabapentin 100 mg capsule 100 mg PO TID 03/15/20 09/28/20 History Atorvastatin Calcium [Lipitor 40mg 40 mg PO HS 06/22/20 09/28/20 History Tablet*] Ticagrelor [Brilinta 90mg 90 mg PO BID 06/22/20 09/28/20 History Tablet] Pantoprazole Sodium [Protonix 40mg 40 mg PO DAILY 07/02/20 09/28/20 History tablet] Allergies Allergy/AdvReac Type Severity Reaction Status Date / Time Penicillins Allergy Unknown Verified 07/11/20 09:21 sulfamethoxazole Allergy Unknown Verified 07/11/20 09:21 [From BACTRIM] trimethoprim [From BACTRIM] Allergy Unknown Verified 07/11/20 09:21 Exam Vital signs and Labs for Last 24 Hours: Temp Pulse Resp BP Pulse Ox 98.1 F 70 15 125/86 95 09/28/20 04:37 09/28/20 05:42 09/28/20 04:37 09/28/20 04:37 09/28/20 04:24 Laboratory Results - last 24 hr 09/28/20 02:10: WBC 7.8, RBC 4.76, Hgb 11.4 L, Hct 37.1 L, MCV 78.0 L, MCH 23.9
--- NOTE | 2020-09-28 07:31 | P.CONPHA_ITS ---
[facility] Pharmacy VTE Monitoring - Patient Demographics Admission date: 09/28/20 Report Date: 09/28/20 Time: 07:31 Allergies/Adverse Reactions: Patient Allergies Penicillins Allergy (Unknown, Verified 07/11/20 09:21) sulfamethoxazole [From BACTRIM] Allergy (Unknown, Verified 07/11/20 09:21) trimethoprim [From BACTRIM] Allergy (Unknown, Verified 07/11/20 09:21) Height: 1.68 m Weight: 48.308 kg Patient Problems: Current Active Problems CAD (coronary artery disease) (Acute) History of coronary artery bypass graft x 6 (Acute) Tobacco use disorder, continuous (Acute) Esophageal dysmotility (Acute) Angina at rest (Acute) Hiatal hernia (Acute) - VTE Risk Labs: VTE Related Lab Results Hgb 9.7 g/dL (14.1-18.0) L D 09/28/20 05:34 Hct 32.3 % (42.0-52.0) L 09/28/20 05:34 Plt Count 356 K/mm3 (142-424) 09/28/20 05:34 BUN 14 mg/dl (9-20) 09/28/20 05:34 Creatinine 0.60 mg/dl (0.66-1.25) L 09/28/20 05:34 Estimated Creat Clear 49 mL/min (50-200) 09/28/20 05:34 VTE Score: 2 VTE Risk Level: Low Risk - Prophylaxis VTE Prophylaxis Ordered?: Yes Types of VTE Prophylaxis: TEDS Knee High Location of Applied Device: Bilateral Lower Extremeties
--- NOTE | 2020-09-28 07:40 | HMH.PHAINT ---
MEDICATION RECONCILIATION COMPLETED ON PATIENT USING EXTERNAL FILL HISTORY FROM PHARMACY. -LUIZ CORRAL, BREANAD
--- NOTE | 2020-09-28 08:00 | CA_ITS ---
APPROVED REPORT EXAM: Comprehensive 2D, Doppler, and color-flow Echocardiogram Home Health Care Social Worker: Leatha Shoemaker CRT Ht: 5 ft 6 in Wt: 100lbs BSA: 1.49 BP: 120/86 mmHg Indications: Chest Pain, Shortness of Breath, Hyperlipidemia, Hypertension/HDD, CABG, CAD, AVR 2006, SMOKER 2D Dimensions LVOT 2.03 cm (M/F) 1.5-2.5 LA Volume 46.30 mL LA Volume Index 31.10 mL/m2 (M/F) 16-34 M-Mode Dimensions RVDd 2.44 cm (0.9-2.6) LA Diam 4.20 cm (1.9-4.0) LVDd 5.85 cm (3.5-5.7) Ao Diam 4.01 cm (2.0-3.7) LVDs 4.16 cm (3.5-5.7) IVSd 1.22 cm (0.6-1.1) PWd 0.63 cm (0.6-1.1) EF (Teich) 54.80% FS 28.90% EDV (Teich) 169.90 mL TAPSE 1.33 (<1.7) ESV (Teich) 76.80 mL LV Diastology E Decel Time 450.00 (160-240 msec) E/A Ratio 0.84 MED E' 6.70 (< 7 cm/sec) MED A' 9.60 cm/s E'/MED E' Ratio 7.96 (>14) LAT E' 8.60 (<10 cm/sec) LAT A' 7.80 cm/s E/LAT E' Ratio 6.20 (>14) Aortic Valve LVOT Max 85.00 (70-110 cm/s) LVOT VTI 18.80 cm AoV Peak Daniel. 103.00 (50-130 cm/s) AI PHT 554.00 ms AO Peak GR. 4.30 mmHg AO Mean GR. 2.50 (<5 mmHg) AO VTI 22.05 (18-25 cm) GONZALEZ (VTI) 2.76 (2.5-4.5 cm2) Mitral Valve MV A Velocity 63.00 (40-130 cm/s) E/A Ratio 0.84 MV Decel. Time 450.00 (160-240 ms) Pulmonary Valve PV Peak Velocity 55.00 (50-150 cm/s) Tricuspid Valve TR P. Velocity 223.00 cm/s RAP Estimate 10.00 mmHg RVSP 29.90 mmHg Left Ventricle Left atrium is mildly enlarged, left ventricle is normal size, mild concentric left ventricular hypertrophy, visually estimated ejection fraction 50% with no regional wall motion abnormality, grade 1 diastolic dysfunction seen without tissue Doppler evidence of raise left atrial pressure. Right Ventricle Right atrium and right ventricle are mildly enlarged with normal contractility. Aortic Valve Aortic valve does not appear to be bioprosthetic, aortic valve is minimally thickened and calcified, there is no aortic stenosis, there is trace aortic insufficiency. Mitral Valve Mitral valve is grossly normal, there is mild mitral regurgitation. Tricuspid Valve Tricuspid valve grossly normal, there is mild tricuspid regurgitation, calculated right ventricular systolic pressure is 30 mmHg. Pulmonic Valve Pulmonic valve is poorly visualized. Great Vessels Aortic root is normal size. Pericardium No significant pericardial effusion noted. Conclusion 1. Mild biatrial enlargement, normal left ventricular size, visually estimated ejection fraction 50% with no regional wall motion abnormality, grade 1 diastolic dysfunction seen without tissue Doppler evidence of raise left atrial pressure. 2. Thickened and calcified aortic valve without aortic stenosis, there is trace aortic insufficiency, the aortic valve does not appear to be bioprosthetic. 3. Mild mitral and tricuspid regurgitation, calculated right ventricular systolic pressure 30 mmHg. 4. No significant pericardial effusion noted. Electronically signed by : Juan Uribe, 09/28/2020 10:26:18
[2020-09-28 09:18] LABS: Troponin I 0.03 ng/ml (0.00-0.034)
--- NOTE | 2020-09-28 10:40 | HMH.CNCARD ---
History of Present Illness Consult date: 09/28/20 Requesting physician: Olu Teresa Consult reason: chest pain Chief complaint: chest pain Additional Medical History:: 1. Coronary artery disease A. 6 vessel CABG with aortic valve replacement (bioprosthetic), approximately 2007 B. [facility], 05/2020, JUAN CARLOS to SVG to RCA along with 2 BMS of the right external iliac artery. C. [facility], 06/2020, patent ROSSI to LAD with distal [place]ahu[place] 1 mm vessel having a 90% stenosis, patent SVG to RCA, occluded SVG to circumflex. LVEF 45% with inferior apical hypokinesis. LVEDP less than 10 mmHg. 2. Tobacco use A. COPD 3. Hypertension 4. Hyperlipidemia 5. Celiac disease by EGD, 06/2020 History of present illness: 69-year-old male with coronary artery disease and celiac disease presented to the emergency department with sudden onset of chest pain that radiated back to his shoulder and then down his arm. While patient's previous admissions have involved chest pain that radiates into the left arm patient describes this as being a different pain in regards to where it started in the chest and how it radiated back into his shoulder. Nonetheless he took a nitroglycerin with some response but not complete resolution of pain at home. EMS was called and he was given a second nitroglycerin along with aspirin 324 mg and brought to the hospital. In the emergency department first troponin was negative but EKG did show some T wave inversions in the inferior lead which was new compared to his last EKG. second troponin earlier this morning is now 0.02. Patient reports resolution of chest pain at approximately 6 AM. At patient's last visit there was concern about possible GI etiology of both chest pain and concern over weight loss. Patient was diagnosed with celiac disease. He admits he does not always follow his gluten-free diet. The above per Dr. Teresa Patient is currently pain-free this a.m. He relates being fairly active at home with no associated chest pain during that time. He describes most of his chest pain at night or waking him from sleep and feels like a lot of it is due to GI issues. He does get some relief at home with antacids. He is on Protonix as well. EKG this admission shows sinus bradycardia with ST-T abnormalities in the inferior and anterolateral leads. The inferior changes (T wave inversion) are similar to EKGs in May of this year at the time of his cardiac catheterization for which medical therapy was recommended. His troponins are all within normal limits but have trended up to a max of 0.03. [facility] History Medical History: Reports:: Coronary Artery Disease, Gall Bladder Disease, Hyperlipidemia, Hypertension, Lung Disease, Myocardial Infarction, Peripheral Artery Disease Denies:: Cancer, Diabetes Mellitus Type 1, Diabetes Mellitus Type 2, MRSA *Have you ever received a pneumonia vaccine?: No *Have you received a flu vaccine this season?: No Other Medical History: Reports: Anemia Other Surgeries: Yes: Appendectomy, CABG, Cardiac Catheterization, Cholecystectomy, Coronary Stent, Hernia Repair, Other Valve Replacement Amputation: No Fractures: No - *Social History Last grade of school completed: High school graduate Smoking Status: Current every day smoker Tobacco Type: cigarettes # Packs/Day (cigarettes): 1 Alcohol Intake: never Substance Use Type: denies use *Occupational Status:: retired Housing: house Household Members: none *Travel in the last 8 weeks: None Family Hx:: Non-contributory Meds Home Medications Medication Instructions Recorded Confirmed Type aspirin 81 mg tablet,delayed 81 mg PO DAILY 03/15/20 09/28/20 History release carvedilol 6.25 mg tablet 6.25 mg PO BID 03/15/20 09/28/20 History gabapentin 100 mg capsule 100 mg PO TID 03/15/20 09/28/20 History Atorvastatin Calcium [Lipitor 40mg 40 mg PO HS 06/22/20 09/28/20 History Tablet*] Ticagrelor [Brilinta 90mg 90 mg PO BID 06/22/20 09/28/20 History Tablet] Kye
--- NOTE | 2020-09-29 07:26 | HMH.DCSUM ---
General - General Admission date:: 09/28/20 Discharge date: 09/28/20 HPI HPI: 69-year-old male with coronary artery disease and celiac disease presented to the emergency department with sudden onset of chest pain that radiated back to his shoulder and then down his arm. While patient's previous admissions have involved chest pain that radiates into the left arm patient describes this as being a different pain in regards to where it started in the chest and how it radiated back into his shoulder. Nonetheless he took a nitroglycerin with some response but not complete resolution of pain at home. EMS was called and he was given a second nitroglycerin along with aspirin 324 mg and brought to the hospital. In the emergency department first troponin was negative but EKG did show some T wave inversions in the inferior lead which was new compared to his last EKG. second troponin earlier this morning is now 0.02. Patient reports resolution of chest pain at approximately 6 AM. At patient's last visit there was concern about possible GI etiology of both chest pain and concern over weight loss. Patient was diagnosed with celiac disease. He admits he does not always follow his gluten-free diet Hospital Course Hospital Course: Patient was admitted with diagnosis of chest pain. Cardiology was consulted due to his extensive cardiac history. Decision was made to manage the patient medically and isosorbide mononitrate 30 mg was added to his medical regimen. Patient remained stable and was discharged home Objective Vital signs: Temp Pulse Resp BP Pulse Ox 97.9 F 58 L 18 117/77 96 09/28/20 12:00 09/28/20 12:00 09/28/20 12:00 09/28/20 12:00 09/28/20 12:00 Results Labs on day of discharge: Labs from last 24 hours 09/28/20 08:46 Troponin I 0.03 DS: Diagnosis - Discharge Diagnosis (1) Angina at rest Status: Acute (2) Hiatal hernia Status: Acute (3) CAD (coronary artery disease) Status: Acute (4) Esophageal dysmotility Status: Acute (5) History of coronary artery bypass graft x 6 Status: Acute (6) Tobacco use disorder, continuous Status: Acute (7) Celiac disease Status: Suspected (8) Anemia Status: Acute Discharge Plan - Patient Discharge Instructions ACTIVITY: Continue current activity DIET: continue same diet Patient Instructions: DI for Angina, DI for Atypical Chest Pain - Follow up Plan Follow up with: Wil Caceres PA [Physician [facility]] - 10/16/20 10:30 am Olu Teresa MD [Primary Care Provider] - 10/12/20 10:45 am Disposition: Home, Self-Care Condition at discharge:: Stable Home Medications: Home Medications Medication Instructions Recorded Confirmed Type aspirin 81 mg tablet,delayed 81 mg PO DAILY 03/15/20 09/28/20 History release carvedilol 6.25 mg tablet 6.25 mg PO BID 03/15/20 09/28/20 History gabapentin 100 mg capsule 100 mg PO TID 03/15/20 09/28/20 History Atorvastatin Calcium [Lipitor 40mg 40 mg PO HS 06/22/20 09/28/20 History Tablet*] Pantoprazole Sodium [Protonix 40mg 40 mg PO BID 07/02/20 09/28/20 History tablet] Clopidogrel Bisulfate [Plavix 75mg 75 mg PO DAILY #30 tab 09/28/20 Rx Tab] Isosorbide Mononitrate [Imdur 30mg 30 mg PO DAILY #30 tab 09/28/20 Rx ER tablet] Prescriptions/Medication Reconciliation: New Clopidogrel Bisulfate [Plavix 75mg Tab] 75 mg PO DAILY #30 tab Isosorbide Mononitrate [Imdur 30mg ER tablet] 30 mg PO DAILY #30 tab Continued aspirin 81 mg tablet,delayed release 81 mg PO DAILY carvedilol 6.25 mg tablet 6.25 mg PO BID gabapentin 100 mg capsule 100 mg PO TID Atorvastatin Calcium [Lipitor 40mg Tablet*] 40 mg PO HS Pantoprazole Sodium [Protonix 40mg tablet] 40 mg PO BID Discontinued Ticagrelor [Brilinta 90mg Tablet] 90 mg PO BID - Problem Reconciliation Problems Reviewed?: Yes
== END 2020-09-28 13:50 | disposition home or self-care (01) ==
LOC: ER 03:49 → 2ND 04:54
PROVIDERS: Admitting Provider Emergency Medicine; Emergency Provider Emergency Medicine; PCP Family Medicine; Visit Provider Family Medicine
DX: R07.9 Chest pain, unspecified (principal); I25.118 Atherosclerotic heart disease of native coronary artery with other forms of angina pectoris; K90.0 Celiac disease; F17.210 Nicotine dependence, cigarettes, uncomplicated; Z95.1 Presence of aortocoronary bypass graft; J44.9 Chronic obstructive pulmonary disease, unspecified; I10 Essential (primary) hypertension; I25.2 Old myocardial infarction; Z79.899 Other long term (current) drug therapy; Z95.0 Presence of cardiac pacemaker; K22.4 Dyskinesia of esophagus; K44.9 Diaphragmatic hernia without obstruction or gangrene
CPT/HCPCS: 36415; 71046; 80048; 80076; 83735; 84145; 84484; 85025; 85651; 86140; 87581; 87633; 87798; 93005; 93306; 96365; 96375; 99283; G0378; J2405

== ENCOUNTER 2021-12-26 21:04 | Emergency (ER) | payer MEDICARE, MEDICAID, SELFPAY ==
[2021-12-26 21:01] VITALS: BP 157/86; PULSE 70; RESP 18; TEMP 36.7; O2SAT 98
--- NOTE | 2021-12-26 21:05 | CT_ITS ---
PROCEDURE INFORMATION: Exam: CT Cervical Spine Without Contrast Exam date and time: 12/26/2021 9:40 PM Age: 71 years old Clinical indication: Pain; Other: Headache; Additional info: REIS, no injury TECHNIQUE: Imaging protocol: Computed tomography of the cervical spine without contrast. Radiation optimization: All CT scans at this facility use at least one of these dose optimization techniques: automated exposure control; mA and/or kV adjustment per patient size (includes targeted exams where dose is matched to clinical indication); or iterative reconstruction. COMPARISON: CT LUNG SCREENING 08/09/2019 8:23 AM FINDINGS: Bones/joints: Chronic left zygomatic process deformity. Anterior subluxation of the mandibular condyles. Discs/Spinal canal/Neural foramina: No significant disc protrusion. No severe spinal canal stenosis. No significant neural foraminal narrowing. Lungs: Bilateral apical fibrotic changes. Moderate to severe centrilobular emphysema. Soft tissues: Unremarkable. IMPRESSION: 1. No acute fracture or malalignment of the cervical spine. 2. Anterior subluxation of the mandibular condyles. Please exclude mandibular dislocation.
--- NOTE | 2021-12-26 21:05 | CT_ITS ---
PROCEDURE INFORMATION: Exam: CT Head Without Contrast Exam date and time: 12/26/2021 9:40 PM Age: 71 years old Clinical indication: Pain; Headache; Additional info: REIS TECHNIQUE: Imaging protocol: Computed tomography of the head without contrast. Radiation optimization: All CT scans at this facility use at least one of these dose optimization techniques: automated exposure control; mA and/or kV adjustment per patient size (includes targeted exams where dose is matched to clinical indication); or iterative reconstruction. COMPARISON: No relevant prior studies available. FINDINGS: Brain: Moderate chronic brain volume loss and chronic small vessel ischemic changes. Chronic appearing bilateral basal ganglia lacunar infarctions. Chronic bilateral cerebellar hemisphere infarctions. Cerebral ventricles: No ventriculomegaly. Paranasal sinuses: Visualized sinuses are unremarkable. No fluid levels. Mastoid air cells: Visualized mastoid air cells are well aerated. Orbital cavities: Status post bilateral cataract surgery. Bones/joints: Unremarkable. No acute fracture. Soft tissues: Unremarkable. IMPRESSION: No acute intracranial findings. If there is high clinical concern for acute infarction, consider MRI for further evaluation. ASSESSMENT: ASPECTS score (Mary Stroke Program Early CT Score) is 10.
[2021-12-26 21:24] LABS: Basophils # 0.1 K/mm3 (0-0.2); Basophils % 1.4 % (0.1-2.0); Eosinophils % 0.7 % (0.1-12.0); Hematocrit 38.4 % (42.0-52.0); Lymphocytes # 1.6 K/mm3 (0.7-4.5); Lymphocytes % 28.5 % (10-50); Mean Corpuscular HGB Conc 31.3 g/dL (31.8-35.4); Mean Corpuscular Hemoglobin 25.3 pg (27.0-31.2); Mean Corpuscular Volume 80.9 fl (80-94); Mean Platelet Volume 7.8 fl (7.4-10.4); Monocytes # 0.5 K/mm3 (0.1-1.0); Monocytes % 9.3 % (1.7-9.3); Neutrophils # 3.5 K/mm3 (1.8-7.8); Neutrophils % 60.1 % (37.0-80.0); Platelet Count 425 K/mm3 (142-424); Red Blood Count 4.75 M/mm3 (4.60-6.20); Red Cell Distribution Width 20.8 % (11.5-17.5); White Blood Count 5.8 K/mm3 (4.8-10.8)
[2021-12-26 21:27] LABS: Alanine Aminotransferase 18 U/L (12-78); Albumin/Globulin Ratio 1.4 (1.1-1.8); Alkaline Phosphatase 141 U/L (38-126); Anion Gap 12.2 mEq/L (5-15); Aspartate Amino Transferase 36 U/L (17-59); Bilirubin,Total 0.2 mg/dl (0.2-1.3); Blood Urea Nitrogen 12 mg/dl (9-20); Calcium 9.3 mg/dl (8.4-10.2); Carbon Dioxide 22 mmol/L (22.0-30.0); Chloride 108 mmol/L (98-107); Creatinine Clearance Estimated 54 mL/min (50-200); Estimated Glomerular Filt Rate 134 ml/min (>60); GFR (African American) 162 ML/MIN (>60); Globulin 2.9 g/dL (1.3-3.2); Glucose 101 mg/dl (74-100); Potassium 3.2 mmoL/L (3.5-5.1); Sodium 139 mmol/L (136-145); Total Protein,Serum 6.9 g/dl (6.3-8.2)
[2021-12-26 21:30] VITALS: BP 134/94; PULSE 63; O2SAT 98
[2021-12-26 21:32] LABS: C-Reactive Protein 5.9 mg/L (0-4)
[2021-12-26 21:46] LABS: Procalcitonin 0.031 ng/mL (0.0-2.0)
[2021-12-26 22:12] LABS: Microscopic, Urine URINE MICROSCOPIC (MICROSCOPIC)
[2021-12-26 22:15] LABS: Appearance,Urine CLEAR (Clear); Bilirubin,Urine Negative (Negative); Blood, Urine Negative (Negative); Color,Urine YELLOW (Yellow); Glucose,Urine (UA) Negative (Negative); Ketones,Urine TRACE (Negative); Leukocyte Esterase,Urine Negative (Negative); Nitrate,Urine Negative (Negative); PH,Urine 6.5 (5.0-8.5); Protein,Urine Negative (Negative)
[2021-12-26 22:16] LABS: Erythrocyte Sedimentation Rate 18 mm/hr (0-20)
[2021-12-26 22:30] VITALS: BP 145/98; PULSE 63; O2SAT 97
--- NOTE | 2021-12-26 22:37 | PC.NURSE ---
Rounded on pt. Pt given warm blanket. No other needs or complaints voiced.
[2021-12-26 23:00] VITALS: BP 160/104; PULSE 63; O2SAT 96
--- NOTE | 2021-12-26 23:01 | PC.NURSE ---
Pt advised he was pain. RN notified.
[2021-12-26 23:04] LABS: Coronavirus 19, PCR Not Detected (NotDetected); Influenza A, PCR Not Detected (NotDetected); Influenza B, PCR Not Detected (NotDetected)
[2021-12-26 23:04] LABS: Bacteria,Urine Trace /lpf; RBC,Urine Occasional #/hpf (0-3); Squamous Epithelial Cell,Urine Occasional #/hpf (0-5)
[2021-12-27] VITALS: BP 132/83; PULSE 65; O2SAT 95
--- NOTE | 2021-12-27 00:04 | PC.NURSE ---
MD at BS speaking with pt about results and POC
--- NOTE | 2021-12-27 00:11 | HMH.EDHA ---
ED Disposition Clinical Impression: History of coronary artery bypass graft x 6, Tobacco use disorder, continuous Headache Qualifiers: Headache type: unspecified Headache chronicity pattern: acute headache Intractability: not intractable Qualified Code(s): R51.9 - Headache, unspecified Disposition: Home, Self-Care Condition on Discharge: Good Instructions: DI for Headache Additional Instructions: see pcp for follow up Referrals: Provider,Referral, [Primary Care Provider] - - Critical Care Critical Care Time: No Attestation: On 12/26/21, the high probability of a clinically significant, sudden or life threatening deterioration of the following system(s) required my full and direct attention, intervention and personal management. The time I documented below is in addition to time spent performing reported procedures but includes the following listed in this critical care notation. Medical Decision Making - Medical Records Medical records reviewed: Yes: I reviewed the patient's medical records. - Gustavo Inquiry Pt receiving controlled substance: No Vital Signs: 12/26/21 21:01 12/26/21 21:30 12/26/21 22:30 Temperature 98.1 F Temperature Source Oral Pulse Rate 63 63 Pulse Rate [Right] 70 Respiratory Rate 18 Blood Pressure 134/94 H 145/98 H Blood Pressure [Right Arm] 157/86 H Blood Pressure Mean Blood Pressure Mean [Right Arm] 109 02 Sat by Pulse Oximetry 98 98 97 Oxygen Delivery Method Room Air Room Air 12/26/21 23:00 12/27/21 00:00 12/27/21 00:30 Temperature Temperature Source Pulse Rate 63 65 61 Pulse Rate [Right] Respiratory Rate Blood Pressure 160/104 H 132/83 141/87 H Blood Pressure [Right Arm] Blood Pressure Mean 122 113 118 Blood Pressure Mean [Right Arm] 02 Sat by Pulse Oximetry 96 95 96 Oxygen Delivery Method 12/27/21 00:32 Temperature 98.1 F Temperature Source Oral Pulse Rate 62 Pulse Rate [Right] Respiratory Rate 18 Blood Pressure 132/81 Blood Pressure [Right Arm] Blood Pressure Mean Blood Pressure Mean [Right Arm] 02 Sat by Pulse Oximetry Oxygen Delivery Method - Lab Data Lab results reviewed: Yes: I reviewed the patient's lab results. Lab Results 12/26/21 21:09: WBC 5.8, RBC 4.75, Hgb 12.0 L, Hct 38.4 L, MCV 80.9, MCH 25.3 L, MCHC 31.3 L, RDW 20.8 H, Plt Count 425 H, MPV 7.8, Neut % (Auto) 60.1, Lymph % (Auto) 28.5, [place] % (Auto) 9.3, Eos % (Auto) 0.7, Baso % (Auto) 1.4, Neut # (Auto) 3.5, Lymph # (Auto) 1.6, [place] # (Auto) 0.5, Eos # (Auto) 0.0, Baso # (Auto) 0.1 12/26/21 21:09: Sodium 139, Potassium 3.2 L, Chloride 108 H, Carbon Dioxide 22, Anion Gap 12.2, BUN 12, Creatinine 0.60 L, Estimated Creat Clear 54, Estimated GFR 134, Est GFR ( Amer) 162, Glucose 101 H, Calcium 9.3, Total Bilirubin 0.2, AST 36, ALT 18, Alkaline Phosphatase 141 H, C-Reactive Protein 5.9 H, Total Protein 6.9, Albumin 4.0, Globulin 2.9, Albumin/Globulin Ratio 1.4 12/26/21 21:09: ESR 18 12/26/21 21:09: Procalcitonin 0.031 12/26/21 22:04: Urine Color Yellow, Urine Appearance Clear, Urine pH 6.5, Ur Specific [place] 1.020, Urine Protein Negative, Urine Glucose (UA) Negative, Urine Ketones Trace, Urine Blood Negative, Urine Nitrate Negative, Urine Bilirubin Negative, Urine Urobilinogen 1.0, Ur Leukocyte Esterase Negative, Urine RBC Occasional, Urine WBC None, Ur Squamous Epith Cells Occasional, Urine Bacteria Trace 12/26/21 22:58: SARS-CoV-2 (PCR) Not detected, Influenza A Untype (PCR) Not detected, Influenza Type B (PCR) Not detected Result diagrams: 12/26/21 21:09 12/26/21 21:09 Orders (Tests/Meds): ED MEDICATIONS Discontinued Medications Generic Name Dose Route Start Last Admin Trade Name Freq PRN Reason Stop Dose Admin Acetaminophen/Codeine Phosphate 1 packet 12/27/21 00:29 Acetaminophen 300mg W/Codeine 30mg Take Home Pack (6) PO 12/27/21 00:30 ONCE ONE Sodium Chloride 1,000 mls @ 999 mls/hr 12/26/21 21:15 12/26/21 2
[2021-12-27 00:30] VITALS: BP 141/87; PULSE 61; O2SAT 96
[2021-12-27 00:32] VITALS: BP 132/81; PULSE 62; RESP 18; TEMP 36.7; O2SAT 96
== END 2021-12-27 01:17 | disposition home or self-care (01) ==
PROVIDERS: Emergency Provider Emergency Medicine
DX: R51.9 Headache, unspecified (principal); Z86.79 Personal history of other diseases of the circulatory system; Z72.0 Tobacco use; R42 Dizziness and giddiness; I25.10 Atherosclerotic heart disease of native coronary artery without angina pectoris; E78.5 Hyperlipidemia, unspecified; I10 Essential (primary) hypertension; I25.2 Old myocardial infarction; I73.9 Peripheral vascular disease, unspecified; J84.9 Interstitial pulmonary disease, unspecified; D64.9 Anemia, unspecified; Z90.49 Acquired absence of other specified parts of digestive tract
CPT/HCPCS: 70450; 72125; 80053; 81001; 84145; 85025; 85651; 86140; 96365; 96375; 99285; C9803; U0003; U0005

== ENCOUNTER 2022-01-03 13:05 | Emergency (ER) | payer MEDICARE, MEDICAID, SELFPAY ==
--- NOTE | 2022-01-03 13:52 | HMH.EDUTC ---
[facility] [place] Impression: Viral syndrome Pharyngitis Qualifiers: Pharyngitis/tonsillitis etiology: unspecified etiology Qualified Code(s): J02.9 - Acute pharyngitis, unspecified Disposition: Home, Self-Care Condition on Discharge: Good Instructions: DI for COVID-19 (Suspected or Confirmed ), Preventing the Spread of Coronavirus Discharge Instructions Additional Instructions: Drink plenty of fluids. Take tylenol or ibuprofen for pain or fever. Take the medications as directed. Follow up with your regular doctor. GO TO THE ER FOR ANY WORSENING SYMPTOMS Prescriptions: Benzonatate [Benzonatate 100mg cap] 100 mg PO TIDP PRN #30 cap PRN Reason: Cough Transmission Status: Received by [facility] methylPREDNISolone [Medrol] 4 mg PO DIRECTED 6 Days #21 packet Transmission Status: Received by [facility] Azithromycin [Z-Barrie 250mg Tab*] 250 mg PO UD DOSE PK #6 tab Transmission Status: Received by [facility] Referrals: Provider,Referral, MD [Primary Care Provider] - Time of Disposition: 14:21 Medical Decision Making - Medical Records Medical records reviewed: No: I reviewed the patient's medical records. - Gsutavo Inquiry Pt receiving controlled substance: No Vital Signs: 01/03/22 13:57 01/03/22 14:42 Temperature 98.3 F 98.3 F Temperature Source Oral Oral Pulse Rate 69 Pulse Rate [Left Radial] 68 Respiratory Rate 15 16 Blood Pressure 139/88 Blood Pressure [Right Arm] 145/85 H Blood Pressure Mean [Right Arm] 105 02 Sat by Pulse Oximetry 95 Oxygen Delivery Method Room Air Room Air - Lab Data Lab results reviewed: Yes: I reviewed the patient's lab results. Lab Results 01/03/22 13:59: Strep Scn Rapid Clinic Negative Orders (Tests/Meds): ORDERS Category Date Time Status Covid-19 Nasal PCR ([facility]) Routine Lab 01/03/22 14:29 Received Strep Screen Confirmation Stat Micro 01/03/22 13:59 [place] [facility] [place] - General Stated complaint: sore throat Time Seen by Provider: 01/03/22 13:52 - History of Present Illness Provider Complaint: He c/o sore throat and feeling bad for the past 2 days. - Related Data Home Medications Medication Instructions Recorded Confirmed aspirin 81 mg tablet,delayed 81 mg PO DAILY 03/15/20 10/16/20 release carvedilol 6.25 mg tablet 6.25 mg PO BID 03/15/20 10/16/20 gabapentin 100 mg capsule 100 mg PO TID 03/15/20 10/16/20 Atorvastatin Calcium [Lipitor 40mg 40 mg PO HS 06/22/20 10/16/20 Tablet*] Pantoprazole Sodium [Protonix 40mg 40 mg PO BID 07/02/20 10/16/20 tablet] Previous Rx's Medication Instructions Recorded Isosorbide Mononitrate [Imdur 30mg 30 mg PO DAILY #30 tab 09/28/20 ER tablet] Azithromycin [Z-Barrie 250mg Tab*] 250 mg PO UD DOSE PK #6 tab 01/03/22 Benzonatate [Benzonatate 100mg 100 mg PO TIDP PRN #30 cap 01/03/22 cap] methylPREDNISolone [Medrol] 4 mg PO DIRECTED 6 Days #21 01/03/22 packet Allergies Allergy/AdvReac Type Severity Reaction Status Date / Time Penicillins Allergy Unknown Verified 10/16/20 10:29 sulfamethoxazole Allergy Unknown Verified 10/16/20 10:29 [From BACTRIM] trimethoprim [From BACTRIM] Allergy Unknown Verified 10/16/20 10:29 [facility] History - Hepatitis A Screen Attestation statement:: This patient has been screened for Hepatitis A risk factors. I have reviewed the patient's past medical history: Yes Medical History: Reports:: Coronary Artery Disease, Gall Bladder Disease, Hyperlipidemia, Hypertension, Lung Disease, Myocardial Infarction, Peripheral Artery Disease Denies:: Cancer, Diabetes Mellitus Type 1, Diabetes Mellitus Type 2, MRSA Other Medical History: Reports: Anemia Other Surgeries: Yes: Appendectomy, CABG, Cardiac Catheterization, Cholecystectomy, Coronary Stent, Hernia Repair, Other Valve Replacement Amputation: No Fractures: No Comment: open heart surgery 2005. - Social History Smoking Status:
[2022-01-03 13:57] VITALS: BP 145/85; PULSE 68; RESP 15; TEMP 36.8; O2SAT 95; BMI 16.1
[2022-01-03 14:00] LABS: UTC Strep Screen (Rapid) Negative (Negative)
[2022-01-03 14:42] VITALS: BP 139/88; PULSE 69; RESP 16; TEMP 36.8; O2SAT 97
== END 2022-01-03 14:43 | disposition home or self-care (01) ==
PROVIDERS: Emergency Provider Nurse Practitioner Family; PCP Family Medicine
DX: J02.9 Acute pharyngitis, unspecified (principal); B34.9 Viral infection, unspecified
CPT/HCPCS: 87880; 99212; C9803; G0463; U0003; U0005